=== PATIENT | male | born 1940 | race African-American/Black ===

== ENCOUNTER 2018-08-10 10:03 | Emergency (ER) | payer MEDICARE, MEDICAID ==
[~2018-08-10] VITALS: Ht 172.7 cm; Wt 60.0 kg
[~2018-08-10 10:03] MED LIST: ASPI-1159 PO; DOCU-138 PO; FAMO-134 PO; LOSA100T14 PO; XALAO EACHEYE
[2018-08-10 16:51] VITALS: BP 136/80
== END 2018-08-10 17:29 | disposition home or self-care (01) ==
LOC: ER 10:03
DX: S80.02XA Contusion of left knee, initial encounter (principal); S09.8XXA Other specified injuries of head, initial encounter; J44.9 Chronic obstructive pulmonary disease, unspecified; F32.9 Major depressive disorder, single episode, unspecified; E11.9 Type 2 diabetes mellitus without complications; K21.9 Gastro-esophageal reflux disease without esophagitis; I10 Essential (primary) hypertension; H40.9 Unspecified glaucoma; W18.39XA Other fall on same level, initial encounter; Y93.89 Activity, other specified; Y92.89 Other specified places as the place of occurrence of the external cause; Y99.8 Other external cause status; Z88.8 Allergy status to other drugs, medicaments and biological substances; Z79.82 Long term (current) use of aspirin; Z79.899 Other long term (current) drug therapy
CPT/HCPCS: 70450; 73560; 99284; A4217; Z7610

== ENCOUNTER 2019-02-16 10:20 | Inpatient (IN) | payer MEDICARE, MEDICAID ==
[~2019-02-16] VITALS: Ht 167.6 cm; Wt 38.1 kg
[~2019-02-16 10:20] MED LIST changes: -ASPI-1159 PO; +ASPI-1393 PO; -LOSA100T14 PO; +LOSA100T32 PO
[2019-02-16 11:15] LABS: BASOPHILS % 0.8 % (0.0-2.0); EOSINOPHILS % 0.2 % (0.0-5.0); HEMATOCRIT. 36.2 % (42.0-52.0); HEMOGLOBIN. 11.7 g/dL (14.0-18.0); LYMPHOCYTES % 15.8 % (20.0-50.0); MEAN CORPUSCULAR HEMOGLOBIN 29.9 pg (28.0-32.0); MEAN CORPUSCULAR VOLUME 92.5 fL (80.0-94.0); MEAN PLATELET VOLUME 7.4 fl (7.4-10.4); MONOCYTES % 13.5 % (2.0-8.0); NEUTROPHILS % 69.7 % (40.0-76.0); PLATELET 235 x1000/uL (130-400); RED BLOOD CELL COUNT 3.91 mill/uL (4.7-6.1); RED CELL DISTRIBUTION WIDTH 15.5 % (11.6-14.6)
[2019-02-16 11:20] LABS: CHLORIDE 113 mEq/L (98-107)
[2019-02-16 11:23] LABS: INR 1.2; PROTHROMBIN TIME 12.3 sec (9.6-11.0)
[2019-02-16] MEDS ORDERED: ACETAMINOPHEN 325MG TABLET PO PRN (12:15)
[2019-02-16] MEDS ORDERED: DOCUSATE SODIUM 100MG CAPSULE PO PRN (12:15)
[2019-02-16] MEDS ORDERED: ONDANSETRON HCL 4MG/2ML INJ IV PRN (12:15)
[2019-02-16] MEDS ORDERED: CLONIDINE 0.1MG TABLET PO PRN (12:15)
[2019-02-16] MEDS: DEXT 5%/0.45% NACL 1000ML 1,000 ML IV SCH (13:42)
[2019-02-16 15:00] VITALS: BP 113/74
[2019-02-16 16:00] VITALS: BP 113/74
[2019-02-16] MEDS ORDERED: MULT-230 MT (16:55)
[2019-02-16] MEDS ORDERED: MEGE40TA27 PO (16:55)
[2019-02-16] MEDS ORDERED: METF-815 PO (16:55)
[2019-02-16] MEDS ORDERED: AMIN30LI2 PO (16:55)
[2019-02-16] MEDS ORDERED: FOLI-43 MT (16:55)
[2019-02-16] MEDS ORDERED: BRIM5DRO EACHEYE (16:55)
[2019-02-16] MEDS ORDERED: BISACODYL 10MG SUPP PR SCH (17:15)
[2019-02-16] MEDS ORDERED: DEXTROSE 50% WATER 50ML SYRINGE IV PRN (18:30)
[2019-02-16 20:00] VITALS: BP 126/69
[2019-02-16] MEDS: INSULIN LISPRO 100 UNITS/ML SUBCUT SCH (21:00)
[2019-02-16] MEDS: BLOOD SUGAR DIAGNOSTIC STRIP TEST SCH (21:46)
[2019-02-16] MEDS: PANTOPRAZOLE SODIUM 40 MG/VIAL IV SCH (21:46)
[2019-02-16] MEDS: LATANOPROST 0.005% OPHTH DROPS 2.5ML BOTHEYE SCH (21:48)
[2019-02-17] VITALS: BP 111/60
[2019-02-17] MEDS: DEXT 5%/0.45% NACL 1000ML 1,000 ML IV SCH ×2 (03:18→14:54)
[2019-02-17 04:00] VITALS: BP 159/87
[2019-02-17] MEDS: BLOOD SUGAR DIAGNOSTIC STRIP TEST SCH ×4 (06:35→21:31)
[2019-02-17 07:32] LABS: INR 1.3; PARTIAL THROMBOPLASTIN TIME 26.5 sec (23.4-31.0); PROTHROMBIN TIME 12.7 sec (9.6-11.0)
[2019-02-17 07:33] LABS: BASOPHILS % 0.2 % (0.0-2.0); EOSINOPHILS % 0.3 % (0.0-5.0); HEMATOCRIT. 28.9 % (42.0-52.0); HEMOGLOBIN. 9.4 g/dL (14.0-18.0); LYMPHOCYTES % 25.7 % (20.0-50.0); MEAN CORPUSCULAR HEMOGLOBIN 29.9 pg (28.0-32.0); MEAN CORPUSCULAR VOLUME 91.6 fL (80.0-94.0); MEAN PLATELET VOLUME 7.8 fl (7.4-10.4); MONOCYTES % 9.1 % (2.0-8.0); NEUTROPHILS % 64.7 % (40.0-76.0); PLATELET 194 x1000/uL (130-400); RED BLOOD CELL COUNT 3.15 mill/uL (4.7-6.1); RED CELL DISTRIBUTION WIDTH 15.6 % (11.6-14.6)
[2019-02-17 07:47] LABS: CHLORIDE 119 mEq/L (98-107)
[2019-02-17] MEDS: INSULIN LISPRO 100 UNITS/ML SUBCUT SCH ×4 (07:50→21:00)
[2019-02-17 07:59] LABS: LDL CHOLESTEROL 49 mg/dL (5-100)
[2019-02-17 08:00] VITALS: BP 138/78
[2019-02-17 08:00] LABS: HDL CHOLESTEROL 30 mg/dL (40-59)
[2019-02-17] MEDS ORDERED: PANTOPRAZOLE SODIUM 40 MG/VIAL IV SCH (09:00)
[2019-02-17] MEDS: PANTOPRAZOLE SODIUM 40 MG/VIAL IV SCH (09:54)
[2019-02-17] MEDS: LOSARTAN POTASSIUM 50 MG TABLET PO SCH (09:54)
[2019-02-17 12:08] LABS: HEMATOCRIT 30.6 % (42.0-52.0)
[2019-02-17 12:37] VITALS: BP 137/68
[2019-02-17] MEDS ORDERED: SIMETHICONE 40 MG/0.6 ML 30ML ONE (13:13)
[2019-02-17] MEDS ORDERED: MIDAZOLAM HCL 5 MG/5 ML VIAL ONE (13:13)
[2019-02-17] MEDS ORDERED: FENTANYL CITRATE/PF 50MCG/ML 2ML VIAL ONE (13:14)
[2019-02-17] MEDS ORDERED: CEFAZOLIN 1000MG PREMIX 50 ML IV ONE ×2 (13:31→13:32)
[2019-02-17] MEDS ORDERED: MIDAZOLAM HCL 5 MG/5 ML VIAL IV PRN (13:35)
[2019-02-17] MEDS ORDERED: FENTANYL CITRATE/PF 50MCG/ML 2ML VIAL IV PRN (13:36)
[2019-02-17 16:42] VITALS: BP 147/81
[2019-02-17 20:00] VITALS: BP 120/69
[2019-02-17] MEDS: LATANOPROST 0.005% OPHTH DROPS 2.5ML BOTHEYE SCH (22:00)
[2019-02-18] VITALS: BP 103/55
[2019-02-18 04:00] VITALS: BP 129/68
[2019-02-18] MEDS: DEXT 5%/0.45% NACL 1000ML 1,000 ML IV SCH (04:42)
[2019-02-18 06:37] LABS: BASOPHILS % 0.2 % (0.0-2.0); HEMATOCRIT. 34.4 % (42.0-52.0); LYMPHOCYTES % 8.3 % (20.0-50.0); MEAN CORPUSCULAR HEMOGLOBIN 29.8 pg (28.0-32.0); MEAN CORPUSCULAR VOLUME 93.2 fL (80.0-94.0); MEAN PLATELET VOLUME 8.3 fl (7.4-10.4); MONOCYTES % 4.8 % (2.0-8.0); NEUTROPHILS % 86.7 % (40.0-76.0); PLATELET 185 x1000/uL (130-400); RED BLOOD CELL COUNT 3.69 mill/uL (4.7-6.1); RED CELL DISTRIBUTION WIDTH 15.7 % (11.6-14.6)
[2019-02-18 06:46] LABS: CHLORIDE 122 mEq/L (98-107)
[2019-02-18] MEDS: BLOOD SUGAR DIAGNOSTIC STRIP TEST SCH ×2 (07:20→12:20)
[2019-02-18] MEDS ORDERED: OMEPRAZOLE 20MG CAPSULE EXTENDED RELEASE PO SCH (07:20)
[2019-02-18] MEDS: INSULIN LISPRO 100 UNITS/ML SUBCUT SCH ×2 (07:40→12:50)
[2019-02-18 08:00] VITALS: BP 138/63
[2019-02-18] MEDS ORDERED: QUETIAPINE FUMARATE 25MG TABLET PO SCH (09:00)
[2019-02-18] MEDS: LOSARTAN POTASSIUM 50 MG TABLET PO SCH (09:38)
[2019-02-18 10:18] VITALS: BP 138/63
[2019-02-18 12:00] VITALS: BP 116/63
== END 2019-02-18 13:45 | DRG 241 ==
LOC: ER 10:20 → 6WST 11:44 → ENRESERV 12:56 → 6WST 02-18 08:10
PROVIDERS: ADMIT Internal Medicine Nephrology; ATTEND Internal Medicine Nephrology
PROC: 0DH63UZ Insertion of Feeding Device into Stomach, Percutaneous Approach (ICD-10-PCS; principal; 2019-02-17)
DX: K29.70 Gastritis, unspecified, without bleeding (principal); R64 Cachexia; G93.40 Encephalopathy, unspecified; K22.10 Ulcer of esophagus without bleeding; F20.9 Schizophrenia, unspecified; N28.1 Cyst of kidney, acquired; J44.9 Chronic obstructive pulmonary disease, unspecified; E11.9 Type 2 diabetes mellitus without complications; F01.50 Vascular dementia, unspecified severity, without behavioral disturbance, psychotic disturbance, mood disturbance, and anxiety; R62.7 Adult failure to thrive; F32.9 Major depressive disorder, single episode, unspecified; J98.11 Atelectasis; K59.00 Constipation, unspecified; K44.9 Diaphragmatic hernia without obstruction or gangrene; K21.9 Gastro-esophageal reflux disease without esophagitis; I10 Essential (primary) hypertension; Q53.10 Unspecified undescended testicle, unilateral; I69.311 Memory deficit following cerebral infarction; Z68.1 Body mass index [BMI] 19.9 or less, adult; Z88.8 Allergy status to other drugs, medicaments and biological substances; Z79.899 Other long term (current) drug therapy; Z79.82 Long term (current) use of aspirin
CPT/HCPCS: 36415; 71045; 74176; 80048; 80061; 82962; 84484; 85014; 85018; 86850; 86900; 93005; 93970; 99285; C9113; J0690; J2250; J3010

== ENCOUNTER 2019-02-27 00:05 | Inpatient (IN) | payer MEDICARE, MEDICAID ==
[~2019-02-27] VITALS: Ht 172.7 cm; Wt 47.2 kg
[~2019-02-27 00:05] MED LIST changes: +AMIN30LI2 PO; +BRIM5DRO EACHEYE; -FAMO-134 PO; +FOLI-43 MT; +MEGE40TA27 PO; +METF-815 PO; +MULT-230 MT
[2019-02-27] MEDS ORDERED: ONDANSETRON HCL 4MG/2ML INJ IV STA (00:56)
[2019-02-27] MEDS ORDERED: SODIUM CHLORIDE 0.9% 1,000 ML IV ONE (01:00)
[2019-02-27 01:12] LABS: BASOPHILS % 0.3 % (0.0-2.0); EOSINOPHILS % 0.5 % (0.0-5.0); HEMATOCRIT. 31.1 % (42.0-52.0); HEMOGLOBIN. 10.1 g/dL (14.0-18.0); LYMPHOCYTES % 16.4 % (20.0-50.0); MEAN CORPUSCULAR VOLUME 92.7 fL (80.0-94.0); MEAN PLATELET VOLUME 7.8 fl (7.4-10.4); MONOCYTES % 9.4 % (2.0-8.0); NEUTROPHILS % 73.4 % (40.0-76.0); PLATELET 250 x1000/uL (130-400); RED BLOOD CELL COUNT 3.36 mill/uL (4.7-6.1); RED CELL DISTRIBUTION WIDTH 16.6 % (11.6-14.6)
[2019-02-27 01:18] LABS: INR 1.2
[2019-02-27 01:19] LABS: CHLORIDE 117 mEq/L (98-107)
[2019-02-27] MEDS ORDERED: FAMOTIDINE 20MG/2ML VIAL IV ONE (02:15)
[2019-02-27] MEDS ORDERED: CLONIDINE 0.1MG TABLET PO PRN (02:30)
[2019-02-27] MEDS ORDERED: DOCUSATE SODIUM 100MG CAPSULE PO PRN (02:30)
[2019-02-27] MEDS ORDERED: HYDROMORPHONE HCL/PF 2MG/ML CPJ IV PRN (02:30)
[2019-02-27] MEDS ORDERED: ONDANSETRON HCL 4MG/2ML INJ IV PRN (02:30)
[2019-02-27] MEDS ORDERED: ACETAMINOPHEN 650MG/20.3ML UDC GT PRN (02:30)
[2019-02-27 02:56] LABS: TOTAL IRON BINDING CAPACITY 265 ug/dL (250-450)
[2019-02-27 04:15] VITALS: BP 119/62
[2019-02-27 04:30] VITALS: BP 119/62
[2019-02-27] MEDS ORDERED: LOSA50TA3 GT (05:40)
[2019-02-27] MEDS ORDERED: FERR220S6 MT (05:40)
[2019-02-27] MEDS: DEXT 5%/0.45% NACL 1000ML 1,000 ML IV SCH ×2 (06:08→20:55)
[2019-02-27] MEDS ORDERED: DEXTROSE 50% WATER 50ML SYRINGE IV PRN (07:15)
[2019-02-27] MEDS: INSULIN LISPRO 100 UNITS/ML SUBCUT SCH ×4 (07:40→21:00)
[2019-02-27] MEDS: BLOOD SUGAR DIAGNOSTIC STRIP TEST SCH ×4 (07:46→20:47)
[2019-02-27 08:00] VITALS: BP 124/69
[2019-02-27 12:00] VITALS: BP 101/63
[2019-02-27 16:00] VITALS: BP 129/71
[2019-02-27] MEDS: SUCRALFATE 1 G/10 ML UDC GT SCH ×2 (16:58→20:47)
[2019-02-27 20:00] VITALS: BP 136/80
[2019-02-27] MEDS: PANTOPRAZOLE SODIUM 40 MG/VIAL IV SCH (20:47)
[2019-02-28] VITALS: BP 127/66
[2019-02-28 04:00] VITALS: BP 130/73
[2019-02-28] MEDS: BLOOD SUGAR DIAGNOSTIC STRIP TEST SCH ×4 (05:59→21:51)
[2019-02-28] MEDS: INSULIN LISPRO 100 UNITS/ML SUBCUT SCH ×4 (05:59→21:00)
[2019-02-28] MEDS: SUCRALFATE 1 G/10 ML UDC GT SCH ×4 (05:59→21:50)
[2019-02-28 09:15] LABS: BASOPHILS % 0.5 % (0.0-2.0); EOSINOPHILS % 1.4 % (0.0-5.0); HEMATOCRIT. 30.9 % (42.0-52.0); HEMOGLOBIN. 9.7 g/dL (14.0-18.0); LYMPHOCYTES % 23.3 % (20.0-50.0); MEAN CORPUSCULAR HEMOGLOBIN 29.9 pg (28.0-32.0); MEAN PLATELET VOLUME 7.9 fl (7.4-10.4); MONOCYTES % 8.7 % (2.0-8.0); NEUTROPHILS % 66.1 % (40.0-76.0); PLATELET 249 x1000/uL (130-400); RED BLOOD CELL COUNT 3.26 mill/uL (4.7-6.1); RED CELL DISTRIBUTION WIDTH 16.3 % (11.6-14.6)
[2019-02-28] MEDS: PANTOPRAZOLE SODIUM 40 MG/VIAL IV SCH ×2 (09:26→21:51)
[2019-02-28 09:59] LABS: CHLORIDE 134 mEq/L (98-107)
[2019-02-28 10:09] LABS: LDL CHOLESTEROL 79 mg/dL (5-100)
[2019-02-28 10:11] LABS: HDL CHOLESTEROL 28 mg/dL (40-59)
[2019-02-28] MEDS: DEXTROSE 5% WATER 1,000 ML IV SCH ×2 (11:37→21:50)
[2019-02-28 17:46] VITALS: BP 126/74
[2019-02-28 20:00] VITALS: BP 132/77
[2019-03-01] VITALS: BP 127/77
[2019-03-01 04:00] VITALS: BP 137/77
[2019-03-01] MEDS: BLOOD SUGAR DIAGNOSTIC STRIP TEST SCH ×4 (06:07→20:35)
[2019-03-01] MEDS: SUCRALFATE 1 G/10 ML UDC GT SCH ×4 (06:07→23:58)
[2019-03-01] MEDS: INSULIN LISPRO 100 UNITS/ML SUBCUT SCH ×4 (06:07→20:36)
[2019-03-01] MEDS: DEXTROSE 5% WATER 1,000 ML IV SCH ×3 (06:08→23:59)
[2019-03-01 07:48] LABS: BASOPHILS % 0.6 % (0.0-2.0); EOSINOPHILS % 1.7 % (0.0-5.0); HEMATOCRIT. 28.5 % (42.0-52.0); HEMOGLOBIN. 9.1 g/dL (14.0-18.0); LYMPHOCYTES % 26.5 % (20.0-50.0); MEAN CORPUSCULAR HEMOGLOBIN 29.9 pg (28.0-32.0); MEAN CORPUSCULAR VOLUME 93.8 fL (80.0-94.0); MEAN PLATELET VOLUME 8.7 fl (7.4-10.4); MONOCYTES % 10.5 % (2.0-8.0); NEUTROPHILS % 60.7 % (40.0-76.0); PLATELET 240 x1000/uL (130-400); RED BLOOD CELL COUNT 3.04 mill/uL (4.7-6.1); RED CELL DISTRIBUTION WIDTH 16.2 % (11.6-14.6)
[2019-03-01 08:00] VITALS: BP 132/71
[2019-03-01 08:03] LABS: CHLORIDE 132 mEq/L (98-107)
[2019-03-01] MEDS: PANTOPRAZOLE SODIUM 40 MG/VIAL IV SCH ×2 (09:58→20:35)
[2019-03-01 12:00] VITALS: BP 125/72
[2019-03-01 16:00] VITALS: BP 110/65
[2019-03-01 20:00] VITALS: BP 130/72
[2019-03-02] VITALS: BP 124/64
[2019-03-02 04:00] VITALS: BP 131/70
[2019-03-02] MEDS: SUCRALFATE 1 G/10 ML UDC GT SCH ×2 (05:24→12:26)
[2019-03-02] MEDS: BLOOD SUGAR DIAGNOSTIC STRIP TEST SCH ×2 (05:24→12:15)
[2019-03-02] MEDS: DEXTROSE 5% WATER 1,000 ML IV SCH (05:24)
[2019-03-02] MEDS: INSULIN LISPRO 100 UNITS/ML SUBCUT SCH ×2 (06:53→12:15)
[2019-03-02 06:58] LABS: CHLORIDE 117 mEq/L (98-107)
[2019-03-02 07:08] LABS: BASOPHILS % 0.6 % (0.0-2.0); EOSINOPHILS % 2.2 % (0.0-5.0); HEMATOCRIT. 28.7 % (42.0-52.0); LYMPHOCYTES % 31.4 % (20.0-50.0); MEAN CORPUSCULAR HEMOGLOBIN 29.4 pg (28.0-32.0); MEAN CORPUSCULAR VOLUME 94.2 fL (80.0-94.0); MONOCYTES % 11.1 % (2.0-8.0); NEUTROPHILS % 54.7 % (40.0-76.0); PLATELET 210 x1000/uL (130-400); RED BLOOD CELL COUNT 3.05 mill/uL (4.7-6.1)
[2019-03-02] MEDS ORDERED: POTASSIUM CHLORIDE 20MEQ/PACKET PO SCH (07:30)
[2019-03-02] MEDS: PANTOPRAZOLE SODIUM 40 MG/VIAL IV SCH (09:28)
[2019-03-02 12:00] VITALS: BP 132/73
[2019-03-02 15:44] VITALS: BP 132/73
[2019-03-02 16:00] VITALS: BP 119/90
== END 2019-03-02 17:20 | DRG 241 ==
LOC: ER 00:24 → 8WST 02:20 → ENRESERV 03:25
PROVIDERS: ADMIT Internal Medicine Nephrology; ATTEND Internal Medicine Nephrology
DX: K29.61 Other gastritis with bleeding (principal); E43 Unspecified severe protein-calorie malnutrition; N17.9 Acute kidney failure, unspecified; E87.0 Hyperosmolality and hypernatremia; K86.89 Other specified diseases of pancreas; E87.1 Hypo-osmolality and hyponatremia; Z93.1 Gastrostomy status; E86.0 Dehydration; D64.9 Anemia, unspecified; E11.9 Type 2 diabetes mellitus without complications; F20.9 Schizophrenia, unspecified; I10 Essential (primary) hypertension; K21.9 Gastro-esophageal reflux disease without esophagitis; J44.9 Chronic obstructive pulmonary disease, unspecified; F03.90 Unspecified dementia, unspecified severity, without behavioral disturbance, psychotic disturbance, mood disturbance, and anxiety; J98.11 Atelectasis; K56.41 Fecal impaction; Z88.8 Allergy status to other drugs, medicaments and biological substances; Z79.899 Other long term (current) drug therapy; Z86.73 Personal history of transient ischemic attack (TIA), and cerebral infarction without residual deficits; Z79.82 Long term (current) use of aspirin; Z79.84 Long term (current) use of oral hypoglycemic drugs; Z68.1 Body mass index [BMI] 19.9 or less, adult
CPT/HCPCS: 36415; 71045; 74176; 80048; 80061; 82270; 82962; 83540; 83550; 84295; 84443; 84484; 93005; 93970; 96361; 96374; 96375; 99285; C9113; J2405; J3490; J7030; J7042; J7070

== ENCOUNTER 2019-07-07 15:33 | Inpatient (IN) | payer MEDICARE, MEDICAID ==
[~2019-07-07] VITALS: Ht 167.6 cm; Wt 57.4 kg
[~2019-07-07 15:33] MED LIST changes: -ASPI-1393 PO; +ASPI-1497 PO; +FERR220S6 MT; +LOSA50TA3 GT; -MEGE40TA27 PO; +MEGE40TA5 PO
[2019-07-07 18:05] LABS: CHLORIDE 127 mEq/L (98-107)
[2019-07-07 18:08] LABS: BASOPHILS % 0.2 % (0.0-2.0); EOSINOPHILS % 1.6 % (0.0-5.0); HEMOGLOBIN. 10.5 g/dL (14.0-18.0); MEAN CORPUSCULAR HEMOGLOBIN 28.4 pg (28.0-32.0); MEAN CORPUSCULAR VOLUME 92.2 fL (80.0-94.0); MONOCYTES % 10.6 % (2.0-8.0); NEUTROPHILS % 67.6 % (40.0-76.0); PLATELET 135 x1000/uL (130-400); RED BLOOD CELL COUNT 3.69 mill/uL (4.7-6.1); RED CELL DISTRIBUTION WIDTH 16.5 % (11.6-14.6)
[2019-07-07] MEDS ORDERED: SODIUM CHLORIDE 0.9% 250 ML IV ONE (19:12)
[2019-07-07] MEDS ORDERED: ASPIRIN 300MG SUPP PR ONE (19:15)
[2019-07-07] MEDS ORDERED: CLONIDINE 0.1MG TABLET PO PRN (22:00)
[2019-07-07] MEDS ORDERED: GUAIFENESIN 200MG/10ML SUGAR FREE UDC PO PRN (22:00)
[2019-07-07] MEDS ORDERED: ONDANSETRON HCL 4MG/2ML INJ IV PRN (22:00)
[2019-07-07] MEDS ORDERED: ACETAMINOPHEN 650MG/20.3ML UDC GT PRN (22:00)
[2019-07-07 23:24] LABS: CREATINE KINASE MB FRACTION 1.4 ng/mL (0.5-3.6)
[2019-07-08 00:59] VITALS: BP 122/75
[2019-07-08] MEDS: DEXTROSE 5% WATER 1,000 ML IV SCH ×4 (01:30→21:05)
[2019-07-08 04:00] VITALS: BP 106/51
[2019-07-08 06:48] LABS: BASOPHILS % 0.4 % (0.0-2.0); EOSINOPHILS % 2.1 % (0.0-5.0); HEMATOCRIT. 35.4 % (42.0-52.0); LYMPHOCYTES % 25.2 % (20.0-50.0); MEAN CORPUSCULAR HEMOGLOBIN 29.1 pg (28.0-32.0); MEAN CORPUSCULAR VOLUME 93.2 fL (80.0-94.0); MEAN PLATELET VOLUME 11.6 fl (7.4-10.4); MONOCYTES % 11.3 % (2.0-8.0); PLATELET 131 x1000/uL (130-400); RED CELL DISTRIBUTION WIDTH 16.7 % (11.6-14.6)
[2019-07-08 06:53] LABS: CHLORIDE 128 mEq/L (98-107)
[2019-07-08 07:02] LABS: CREATINE KINASE 103 IU/L (39-308)
[2019-07-08 07:04] LABS: CREATINE KINASE MB FRACTION 1.2 ng/mL (0.5-3.6)
[2019-07-08 08:00] VITALS: BP 123/53
[2019-07-08] MEDS: ENOXAPARIN 40MG/0.4ML SYR SUBCUT SCH (10:02)
[2019-07-08] MEDS ORDERED: DEXTROSE 50% WATER 50ML SYRINGE IV PRN (11:00)
[2019-07-08 12:00] VITALS: BP 137/76
[2019-07-08] MEDS: BLOOD SUGAR DIAGNOSTIC STRIP TEST SCH ×3 (12:20→20:50)
[2019-07-08] MEDS: INSULIN LISPRO 100 UNITS/ML SUBCUT SCH ×3 (12:50→21:00)
[2019-07-08] MEDS: BRIMONIDINE 0.2% OPHTH DROPS 5ML EACHEYE SCH ×2 (14:14→20:51)
[2019-07-08 16:00] VITALS: BP 133/60
[2019-07-08] MEDS: METFORMIN HCL 500MG TABLET PO SCH (17:50)
[2019-07-08 20:00] VITALS: BP 114/63
[2019-07-08] MEDS: METOPROLOL TARTRATE 25MG TABLET PO SCH (20:50)
[2019-07-08] MEDS: LATANOPROST 0.005% OPHTH DROPS 2.5ML EACHEYE SCH (20:51)
[2019-07-09 00:18] VITALS: BP 115/70
[2019-07-09 04:00] VITALS: BP 130/88
[2019-07-09] MEDS: BRIMONIDINE 0.2% OPHTH DROPS 5ML EACHEYE SCH ×3 (05:50→21:07)
[2019-07-09] MEDS: BLOOD SUGAR DIAGNOSTIC STRIP TEST SCH ×4 (05:50→21:06)
[2019-07-09] MEDS: DEXTROSE 5% WATER 1,000 ML IV SCH ×3 (05:52→21:16)
[2019-07-09 06:14] LABS: BASOPHILS % 0.6 % (0.0-2.0); EOSINOPHILS % 2.5 % (0.0-5.0); HEMATOCRIT. 34.9 % (42.0-52.0); HEMOGLOBIN. 10.7 g/dL (14.0-18.0); LYMPHOCYTES % 25.4 % (20.0-50.0); MEAN CORPUSCULAR HEMOGLOBIN 28.7 pg (28.0-32.0); MEAN CORPUSCULAR VOLUME 93.8 fL (80.0-94.0); MEAN PLATELET VOLUME 11.4 fl (7.4-10.4); NEUTROPHILS % 58.5 % (40.0-76.0); PLATELET 124 x1000/uL (130-400); RED BLOOD CELL COUNT 3.72 mill/uL (4.7-6.1); RED CELL DISTRIBUTION WIDTH 16.9 % (11.6-14.6)
[2019-07-09 06:35] LABS: CHLORIDE 125 mEq/L (98-107)
[2019-07-09 06:41] LABS: PHOSPHORUS 2.7 mg/dL (2.5-4.9)
[2019-07-09] MEDS: INSULIN LISPRO 100 UNITS/ML SUBCUT SCH ×4 (07:35→21:00)
[2019-07-09 08:09] VITALS: BP 116/47
[2019-07-09] MEDS: METFORMIN HCL 500MG TABLET PO SCH ×2 (09:58→17:50)
[2019-07-09] MEDS: LOSARTAN POTASSIUM 50 MG TABLET PO SCH (09:58)
[2019-07-09] MEDS: METOPROLOL TARTRATE 25MG TABLET PO SCH ×2 (09:59→21:07)
[2019-07-09] MEDS: FOLIC ACID 1MG TABLET PO SCH (09:59)
[2019-07-09] MEDS: ENOXAPARIN 40MG/0.4ML SYR SUBCUT SCH (09:59)
[2019-07-09 12:19] VITALS: BP 123/54
[2019-07-09 16:42] VITALS: BP 102/50
[2019-07-09 18:53] LABS: CLARITY URINE CLOUDY (CLEAR); COLOR URINE YELLOW (YELLOW); KETONES URINE NEGATIVE (NEGATIVE); LEUKOCYTE ESTERASE URINE 3+ (NEGATIVE); NITRITE URINE POSITIVE (NEGATIVE); OCCULT BLOOD URINE 1+ (NEGATIVE); PH URINE 6.5 (4.5-8.0); PROTEIN URINE 1+ (NEGATIVE); SPECIFIC GRAVITY URINE 1.014 (1.005-1.030); UROBILINOGEN URINE 0.2 E.U./dL (0.2-1.0)
[2019-07-09 20:00] VITALS: BP 118/61
[2019-07-09] MEDS: LATANOPROST 0.005% OPHTH DROPS 2.5ML EACHEYE SCH (21:08)
[2019-07-10] VITALS: BP 112/50
[2019-07-10 04:00] VITALS: BP 146/72
[2019-07-10] MEDS: DEXTROSE 5% WATER 1,000 ML IV SCH ×3 (05:28→22:00)
[2019-07-10] MEDS: BRIMONIDINE 0.2% OPHTH DROPS 5ML EACHEYE SCH ×3 (05:30→22:35)
[2019-07-10] MEDS: BLOOD SUGAR DIAGNOSTIC STRIP TEST SCH ×4 (06:23→20:18)
[2019-07-10] MEDS: INSULIN LISPRO 100 UNITS/ML SUBCUT SCH ×4 (06:23→20:18)
[2019-07-10] MEDS: METFORMIN HCL 500MG TABLET PO SCH ×2 (07:50→18:36)
[2019-07-10 08:00] VITALS: BP 107/51
[2019-07-10] MEDS: METOPROLOL TARTRATE 25MG TABLET PO SCH ×2 (09:00→20:19)
[2019-07-10] MEDS: ENOXAPARIN 40MG/0.4ML SYR SUBCUT SCH (09:00)
[2019-07-10] MEDS: FOLIC ACID 1MG TABLET PO SCH (09:00)
[2019-07-10] MEDS: LOSARTAN POTASSIUM 50 MG TABLET PO SCH (09:00)
[2019-07-10] MEDS: PANTOPRAZOLE SODIUM 40 MG/VIAL IV SCH (11:18)
[2019-07-10 11:34] LABS: BASOPHILS % 0.3 % (0.0-2.0); EOSINOPHILS % 0.2 % (0.0-5.0); HEMATOCRIT. 32.1 % (42.0-52.0); HEMOGLOBIN. 10.2 g/dL (14.0-18.0); LYMPHOCYTES % 10.1 % (20.0-50.0); MEAN CORPUSCULAR HEMOGLOBIN 28.6 pg (28.0-32.0); MEAN CORPUSCULAR VOLUME 90.4 fL (80.0-94.0); MEAN PLATELET VOLUME 10.8 fl (7.4-10.4); MONOCYTES % 9.3 % (2.0-8.0); NEUTROPHILS % 80.1 % (40.0-76.0); PLATELET 138 x1000/uL (130-400); RED BLOOD CELL COUNT 3.56 mill/uL (4.7-6.1); RED CELL DISTRIBUTION WIDTH 16.2 % (11.6-14.6)
[2019-07-10 11:41] LABS: CHLORIDE 117 mEq/L (98-107)
[2019-07-10 12:00] VITALS: BP 114/50
[2019-07-10 12:32] LABS: BG BASE EXCESS -0.4 mmol/L (-2.0-2.0); BG CARBOXYHEMOGLOBIN 0.3 % (0.5-1.5); BG DEOXYHEMOGLOBIN 10.7 % (0.0-5.0); BG FRACTION INSPIRED OXYGEN 21; BG HCO3 ACT 23.4 mmol/L (22.0-26.0); BG METHEMOGLOBIN 0.1 % (0.0-1.5); BG OXYGEN SATURATION 89.3 % (92.0-98.5); BG OXYHEMOGLOBIN 88.9 % (94.0-97.0); BG PCO2 35.2 mmHg (35.0-45.0); BG SAMPLE SITE RIGHT RADIAL; BG TOTAL HEMOGLOBIN 10.9 g/dL (12.0-18.0); BG VENT MODE ROOM AIR
[2019-07-10] MEDS: METRONIDAZOLE 500 MG PREMIX 100 ML IV SCH ×2 (13:48→22:35)
[2019-07-10] MEDS ORDERED: POTASSIUM CHLORIDE INJ 40 MEQ in DEXT 5% WATER 250 ML IV NR (14:00)
[2019-07-10 16:00] VITALS: BP 98/49
[2019-07-10 16:18] LABS: PHOSPHORUS 2.7 mg/dL (2.5-4.9)
[2019-07-10 22:00] VITALS: BP 105/51
[2019-07-10] MEDS: LATANOPROST 0.005% OPHTH DROPS 2.5ML EACHEYE SCH (22:35)
[2019-07-11] VITALS: BP 95/48
[2019-07-11 04:00] VITALS: BP 103/48
[2019-07-11] MEDS: DEXTROSE 5% WATER 1,000 ML IV SCH ×3 (04:42→21:50)
[2019-07-11] MEDS: METRONIDAZOLE 500 MG PREMIX 100 ML IV SCH ×3 (05:37→21:50)
[2019-07-11] MEDS: BRIMONIDINE 0.2% OPHTH DROPS 5ML EACHEYE SCH ×3 (05:37→21:48)
[2019-07-11 05:47] LABS: BASOPHILS % 0.1 % (0.0-2.0); HEMATOCRIT. 30.9 % (42.0-52.0); HEMOGLOBIN. 9.7 g/dL (14.0-18.0); LYMPHOCYTES % 19.1 % (20.0-50.0); MEAN CORPUSCULAR HEMOGLOBIN 28.8 pg (28.0-32.0); MEAN CORPUSCULAR VOLUME 92.1 fL (80.0-94.0); MEAN PLATELET VOLUME 10.9 fl (7.4-10.4); MONOCYTES % 11.2 % (2.0-8.0); NEUTROPHILS % 68.6 % (40.0-76.0); PLATELET 122 x1000/uL (130-400); RED BLOOD CELL COUNT 3.36 mill/uL (4.7-6.1); RED CELL DISTRIBUTION WIDTH 16.4 % (11.6-14.6)
[2019-07-11] MEDS: BLOOD SUGAR DIAGNOSTIC STRIP TEST SCH ×4 (06:37→21:50)
[2019-07-11] MEDS: INSULIN LISPRO 100 UNITS/ML SUBCUT SCH ×4 (06:37→21:00)
[2019-07-11 06:40] LABS: CHLORIDE 118 mEq/L (98-107)
[2019-07-11 08:00] VITALS: BP 97/56
[2019-07-11] MEDS: FOLIC ACID 1MG TABLET PO SCH (08:25)
[2019-07-11] MEDS: METOPROLOL TARTRATE 25MG TABLET PO SCH ×2 (08:25→21:00)
[2019-07-11] MEDS: LOSARTAN POTASSIUM 50 MG TABLET PO SCH (08:26)
[2019-07-11] MEDS: METFORMIN HCL 500MG TABLET PO SCH ×2 (08:26→16:56)
[2019-07-11] MEDS: PANTOPRAZOLE SODIUM 40 MG/VIAL IV SCH (08:26)
[2019-07-11] MEDS: ENOXAPARIN 40MG/0.4ML SYR SUBCUT SCH (08:26)
[2019-07-11] MEDS ORDERED: MAGNESIUM HYDROXIDE 400MG/5ML 30ML UDC PO PRN (09:45)
[2019-07-11] MEDS ORDERED: POTASSIUM CHLORIDE 20MEQ/PACKET PO SCH (10:45)
[2019-07-11 12:00] VITALS: BP 91/53
[2019-07-11 16:00] VITALS: BP 97/51
[2019-07-11] MEDS: DOCUSATE SODIUM SUGAR FREE 100MG/10ML UDC NG SCH (16:54)
[2019-07-11 20:00] VITALS: BP 101/50
[2019-07-11] MEDS: LATANOPROST 0.005% OPHTH DROPS 2.5ML EACHEYE SCH (21:50)
[2019-07-12] VITALS: BP 100/60
[2019-07-12 04:00] VITALS: BP 111/50
[2019-07-12] MEDS: DEXTROSE 5% WATER 1,000 ML IV SCH ×2 (05:15→14:00)
[2019-07-12] MEDS: BRIMONIDINE 0.2% OPHTH DROPS 5ML EACHEYE SCH ×3 (05:15→21:39)
[2019-07-12] MEDS: METRONIDAZOLE 500 MG PREMIX 100 ML IV SCH (05:16)
[2019-07-12 06:45] LABS: BASOPHILS % 0.3 % (0.0-2.0); CHLORIDE 120 mEq/L (98-107); HEMATOCRIT. 26.6 % (42.0-52.0); HEMOGLOBIN. 8.5 g/dL (14.0-18.0); LYMPHOCYTES % 16.1 % (20.0-50.0); MEAN CORPUSCULAR HEMOGLOBIN 29.2 pg (28.0-32.0); MEAN CORPUSCULAR VOLUME 91.3 fL (80.0-94.0); MEAN PLATELET VOLUME 10.8 fl (7.4-10.4); MONOCYTES % 11.9 % (2.0-8.0); NEUTROPHILS % 70.7 % (40.0-76.0); PLATELET 111 x1000/uL (130-400); RED BLOOD CELL COUNT 2.91 mill/uL (4.7-6.1); RED CELL DISTRIBUTION WIDTH 16.7 % (11.6-14.6)
[2019-07-12] MEDS: INSULIN LISPRO 100 UNITS/ML SUBCUT SCH ×4 (07:50→21:00)
[2019-07-12] MEDS: BLOOD SUGAR DIAGNOSTIC STRIP TEST SCH ×4 (07:53→21:32)
[2019-07-12] MEDS: METFORMIN HCL 500MG TABLET PO SCH ×2 (09:30→17:49)
[2019-07-12] MEDS: FOLIC ACID 1MG TABLET PO SCH (09:30)
[2019-07-12] MEDS: DOCUSATE SODIUM SUGAR FREE 100MG/10ML UDC NG SCH ×2 (09:31→17:00)
[2019-07-12] MEDS: LOSARTAN POTASSIUM 50 MG TABLET PO SCH (09:31)
[2019-07-12] MEDS: METOPROLOL TARTRATE 25MG TABLET PO SCH (09:31)
[2019-07-12] MEDS: PANTOPRAZOLE SODIUM 40 MG/VIAL IV SCH (09:31)
[2019-07-12] MEDS: ENOXAPARIN 40MG/0.4ML SYR SUBCUT SCH (09:31)
[2019-07-12 12:00] VITALS: BP 112/51
[2019-07-12] MEDS: NITROFURANTOIN 100MG M/M CAPSULE PO SCH ×2 (13:00→21:39)
[2019-07-12 14:25] VITALS: BP 112/51
[2019-07-12 20:00] VITALS: BP 101/66
[2019-07-12] MEDS: LATANOPROST 0.005% OPHTH DROPS 2.5ML EACHEYE SCH (21:39)
[2019-07-13] VITALS (30 sets, daily range): BP systolic 71–118; BP diastolic 31–74
[2019-07-13] MEDS: DEXTROSE 5% WATER 1,000 ML IV SCH ×2 (02:11→11:21)
[2019-07-13] MEDS: BRIMONIDINE 0.2% OPHTH DROPS 5ML EACHEYE SCH ×3 (05:38→23:50)
[2019-07-13] MEDS: BLOOD SUGAR DIAGNOSTIC STRIP TEST SCH ×4 (06:57→21:58)
[2019-07-13] MEDS: INSULIN LISPRO 100 UNITS/ML SUBCUT SCH ×4 (06:57→21:00)
[2019-07-13] MEDS ORDERED: DILTIAZEM HCL 5MG/ML 5ML VIAL IV SCH (07:00)
[2019-07-13] MEDS: DOCUSATE SODIUM SUGAR FREE 100MG/10ML UDC NG SCH ×2 (08:34→17:00)
[2019-07-13] MEDS: PANTOPRAZOLE SODIUM 40 MG/VIAL IV SCH (08:34)
[2019-07-13] MEDS: METFORMIN HCL 500MG TABLET PO SCH ×2 (08:35→17:08)
[2019-07-13] MEDS: NITROFURANTOIN 100MG M/M CAPSULE PO SCH ×3 (08:35→22:23)
[2019-07-13] MEDS: FOLIC ACID 1MG TABLET PO SCH (08:35)
[2019-07-13] MEDS ORDERED: METOPROLOL TARTRATE 25MG TABLET PO SCH (09:00)
[2019-07-13] MEDS ORDERED: SODIUM CHLORIDE 0.9% 250 ML IV ONE (09:45)
[2019-07-13 09:54] LABS: BG BASE EXCESS 0.2 mmol/L (-2.0-2.0); BG DEOXYHEMOGLOBIN 4.6 % (0.0-5.0); BG FRACTION INSPIRED OXYGEN 28; BG METHEMOGLOBIN 0.3 % (0.0-1.5); BG OXYGEN SATURATION 95.4 % (92.0-98.5); BG OXYHEMOGLOBIN 95.1 % (94.0-97.0); BG PCO2 35.2 mmHg (35.0-45.0); BG PH 7.452 (7.350-7.450); BG PO2 81.8 mmHg (75.0-100.0); BG SAMPLE SITE RIGHT BRACHIAL; BG TOTAL HEMOGLOBIN 8.7 g/dL (12.0-18.0); BG VENT MODE NASAL CANNULA
[2019-07-13 10:06] LABS: BASOPHILS % 0.3 % (0.0-2.0); EOSINOPHILS % 2.3 % (0.0-5.0); HEMATOCRIT. 24.4 % (42.0-52.0); HEMOGLOBIN. 7.7 g/dL (14.0-18.0); LYMPHOCYTES % 20.6 % (20.0-50.0); MEAN CORPUSCULAR HEMOGLOBIN 28.5 pg (28.0-32.0); MEAN CORPUSCULAR VOLUME 90.8 fL (80.0-94.0); MEAN PLATELET VOLUME 10.5 fl (7.4-10.4); MONOCYTES % 13.2 % (2.0-8.0); NEUTROPHILS % 63.6 % (40.0-76.0); PLATELET 127 x1000/uL (130-400); RED BLOOD CELL COUNT 2.69 mill/uL (4.7-6.1); RED CELL DISTRIBUTION WIDTH 16.9 % (11.6-14.6)
[2019-07-13 10:12] LABS: CHLORIDE 117 mEq/L (98-107)
[2019-07-13 10:18] LABS: PHOSPHORUS 2.4 mg/dL (2.5-4.9)
[2019-07-13] MEDS ORDERED: DILTIAZEM HCL 125 MG in DEXT 5% WATER 100 ML IV SCH (10:30)
[2019-07-13] MEDS ORDERED: CEFTRIAXONE 1 G PREMIX 50 ML IV SCH ×2 (10:30→14:00)
[2019-07-13] MEDS ORDERED: METRONIDAZOLE 500 MG PREMIX 100 ML IV SCH (11:00)
[2019-07-13] MEDS ORDERED: BISACODYL 10MG SUPP PR SCH (11:15)
[2019-07-13] MEDS ORDERED: SORBITOL 70% SOLN 30ML PO SCH (11:15)
[2019-07-13] MEDS: METRONIDAZOLE 500 MG PREMIX 100 ML IV SCH (15:27)
[2019-07-13] MEDS ORDERED: POTASSIUM CHLORIDE 20MEQ/PACKET PO NR (16:00)
[2019-07-13 17:47] LABS: TOTAL IRON BINDING CAPACITY 207 ug/dL (250-450)
[2019-07-13] MEDS: LATANOPROST 0.005% OPHTH DROPS 2.5ML EACHEYE SCH (23:03)
[2019-07-14] VITALS (12 sets, daily range): BP systolic 112–130; BP diastolic 51–63
[2019-07-14] LABS: CHLORIDE 118 mEq/L (98-107)
[2019-07-14] MEDS: METRONIDAZOLE 500 MG PREMIX 100 ML IV SCH ×2 (00:01→06:11)
[2019-07-14 05:48] LABS: CHLORIDE 120 mEq/L (98-107)
[2019-07-14] MEDS: BRIMONIDINE 0.2% OPHTH DROPS 5ML EACHEYE SCH ×3 (06:11→22:18)
[2019-07-14] MEDS: BLOOD SUGAR DIAGNOSTIC STRIP TEST SCH ×4 (06:12→20:56)
[2019-07-14 06:23] LABS: BASOPHILS % 0.1 % (0.0-2.0); HEMATOCRIT. 27.6 % (42.0-52.0); HEMOGLOBIN. 8.8 g/dL (14.0-18.0); LYMPHOCYTES % 20.8 % (20.0-50.0); MEAN CORPUSCULAR HEMOGLOBIN 28.8 pg (28.0-32.0); MEAN CORPUSCULAR VOLUME 90.8 fL (80.0-94.0); MEAN PLATELET VOLUME 10.6 fl (7.4-10.4); MONOCYTES % 12.6 % (2.0-8.0); NEUTROPHILS % 63.5 % (40.0-76.0); PLATELET 134 x1000/uL (130-400); RED BLOOD CELL COUNT 3.04 mill/uL (4.7-6.1); RED CELL DISTRIBUTION WIDTH 16.7 % (11.6-14.6)
[2019-07-14] MEDS: INSULIN LISPRO 100 UNITS/ML SUBCUT SCH ×4 (07:20→20:56)
[2019-07-14] MEDS: DOCUSATE SODIUM SUGAR FREE 100MG/10ML UDC NG SCH ×2 (08:19→18:05)
[2019-07-14] MEDS: PANTOPRAZOLE SODIUM 40 MG/VIAL IV SCH (08:19)
[2019-07-14] MEDS: METFORMIN HCL 500MG TABLET PO SCH ×2 (08:19→18:06)
[2019-07-14] MEDS: FOLIC ACID 1MG TABLET PO SCH (08:19)
[2019-07-14] MEDS: CEFAZOLIN 500MG in DEXTROSE 5% WATER 50ML IV SCH ×2 (13:34→23:30)
[2019-07-14] MEDS: ASCORBIC ACID 500 MG TABLET PO SCH (13:35)
[2019-07-14] MEDS: FERROUS SULFATE 300MG/5ML UDC PO SCH ×2 (13:35→18:05)
[2019-07-14] MEDS: ZINC SULFATE 220 MG ( 50 ) CAPSULE PO SCH (13:35)
[2019-07-14] MEDS: SOTALOL HCL 80MG TABLET PO SCH (13:43)
[2019-07-14] MEDS ORDERED: CEFAZOLIN SODIUM 500MG/VIAL IM SCH (14:00)
[2019-07-14] MEDS: LATANOPROST 0.005% OPHTH DROPS 2.5ML EACHEYE SCH (20:56)
[2019-07-14] MEDS ORDERED: LACTULOSE 20G/30ML UDC PO PRN (21:00)
[2019-07-15] VITALS (13 sets, daily range): BP systolic 101–138; BP diastolic 51–82
[2019-07-15] MEDS: BRIMONIDINE 0.2% OPHTH DROPS 5ML EACHEYE SCH ×2 (05:45→13:33)
[2019-07-15] MEDS: CEFAZOLIN 500MG in DEXTROSE 5% WATER 50ML IV SCH (05:45)
[2019-07-15 06:41] LABS: HEMATOCRIT. 30.4 % (42.0-52.0); HEMOGLOBIN. 9.6 g/dL (14.0-18.0); MEAN CORPUSCULAR HEMOGLOBIN 28.8 pg (28.0-32.0); MEAN CORPUSCULAR VOLUME 91.4 fL (80.0-94.0); MEAN PLATELET VOLUME 10.6 fl (7.4-10.4); RED BLOOD CELL COUNT 3.33 mill/uL (4.7-6.1); RED CELL DISTRIBUTION WIDTH 16.8 % (11.6-14.6)
[2019-07-15 06:57] LABS: CHLORIDE 123 mEq/L (98-107)
[2019-07-15 07:04] LABS: PHOSPHORUS 2.3 mg/dL (2.5-4.9)
[2019-07-15] MEDS: INSULIN LISPRO 100 UNITS/ML SUBCUT SCH ×4 (07:20→21:00)
[2019-07-15] MEDS: BLOOD SUGAR DIAGNOSTIC STRIP TEST SCH ×4 (07:36→21:00)
[2019-07-15] MEDS: DOCUSATE SODIUM SUGAR FREE 100MG/10ML UDC NG SCH ×2 (08:29→17:07)
[2019-07-15] MEDS: FERROUS SULFATE 300MG/5ML UDC PO SCH ×3 (08:30→17:06)
[2019-07-15] MEDS: ZINC SULFATE 220 MG ( 50 ) CAPSULE PO SCH (08:31)
[2019-07-15] MEDS: ASCORBIC ACID 500 MG TABLET PO SCH (08:33)
[2019-07-15] MEDS: SOTALOL HCL 80MG TABLET PO SCH ×2 (08:34→11:14)
[2019-07-15] MEDS: FOLIC ACID 1MG TABLET PO SCH (08:34)
[2019-07-15] MEDS: PANTOPRAZOLE SODIUM 40 MG/VIAL IV SCH (08:34)
[2019-07-15] MEDS: METFORMIN HCL 500MG TABLET PO SCH ×2 (08:42→17:07)
[2019-07-15] MEDS: DEXTROSE 5% WATER 1,000 ML IV SCH (09:30)
[2019-07-15 10:10] LABS: PLATELET ESTIMATE NORMAL
[2019-07-15 10:16] LABS: PLATELET 135 x1000/uL (130-400)
[2019-07-15] MEDS: SORBITOL 70% SOLN 30ML PO SCH (15:46)
[2019-07-15] MEDS: CEFAZOLIN 1000MG PREMIX 50 ML IV SCH (17:08)
[2019-07-15] MEDS: LACTULOSE 20G/30ML UDC PO SCH (21:00)
[2019-07-15] MEDS: LATANOPROST 0.005% OPHTH DROPS 2.5ML EACHEYE SCH (23:19)
[2019-07-16] VITALS (13 sets, daily range): BP systolic 92–139; BP diastolic 45–76
[2019-07-16] MEDS: BRIMONIDINE 0.2% OPHTH DROPS 5ML EACHEYE SCH ×4 (00:57→22:54)
[2019-07-16] MEDS: DEXTROSE 5% WATER 1,000 ML IV SCH ×2 (00:58→17:22)
[2019-07-16] MEDS ORDERED: SOTALOL HCL 80MG TABLET PO NR (02:15)
[2019-07-16] MEDS: CEFAZOLIN 1000MG PREMIX 50 ML IV SCH (06:19)
[2019-07-16] MEDS: BLOOD SUGAR DIAGNOSTIC STRIP TEST SCH ×4 (06:26→21:19)
[2019-07-16 06:44] LABS: BASOPHILS % 0.4 % (0.0-2.0); EOSINOPHILS % 1.5 % (0.0-5.0); HEMATOCRIT. 26.4 % (42.0-52.0); HEMOGLOBIN. 8.3 g/dL (14.0-18.0); LYMPHOCYTES % 17.6 % (20.0-50.0); MEAN CORPUSCULAR HEMOGLOBIN 28.6 pg (28.0-32.0); MONOCYTES % 12.5 % (2.0-8.0); PLATELET 146 x1000/uL (130-400); RED CELL DISTRIBUTION WIDTH 16.6 % (11.6-14.6)
[2019-07-16 06:48] LABS: CHLORIDE 119 mEq/L (98-107)
[2019-07-16] MEDS ORDERED: POTASSIUM CHLORIDE 20MEQ/PACKET PO SCH (07:15)
[2019-07-16] MEDS: INSULIN LISPRO 100 UNITS/ML SUBCUT SCH ×4 (07:20→21:00)
[2019-07-16] MEDS: ZINC SULFATE 220 MG ( 50 ) CAPSULE PO SCH (08:25)
[2019-07-16] MEDS: ASCORBIC ACID 500 MG TABLET PO SCH (08:26)
[2019-07-16] MEDS: METFORMIN HCL 500MG TABLET PO SCH ×2 (08:26→17:44)
[2019-07-16] MEDS: SOTALOL HCL 80MG TABLET PO SCH (08:26)
[2019-07-16] MEDS: PANTOPRAZOLE SODIUM 40 MG/VIAL IV SCH (08:26)
[2019-07-16] MEDS: FERROUS SULFATE 300MG/5ML UDC PO SCH ×3 (08:26→17:44)
[2019-07-16] MEDS: FOLIC ACID 1MG TABLET PO SCH (08:27)
[2019-07-16] MEDS: DOCUSATE SODIUM SUGAR FREE 100MG/10ML UDC NG SCH ×2 (08:27→17:00)
[2019-07-16] MEDS: SORBITOL 70% SOLN 30ML PO SCH (08:27)
[2019-07-16] MEDS: LACTULOSE 20G/30ML UDC PO SCH (21:00)
[2019-07-16] MEDS: LATANOPROST 0.005% OPHTH DROPS 2.5ML EACHEYE SCH (21:23)
[2019-07-17] VITALS (11 sets, daily range): BP systolic 105–143; BP diastolic 51–85
[2019-07-17] MEDS: BRIMONIDINE 0.2% OPHTH DROPS 5ML EACHEYE SCH ×3 (05:58→21:43)
[2019-07-17] MEDS: CEFAZOLIN 1000MG PREMIX 50 ML IV SCH ×2 (05:58→18:31)
[2019-07-17] MEDS: BLOOD SUGAR DIAGNOSTIC STRIP TEST SCH ×4 (06:35→21:00)
[2019-07-17 06:44] LABS: BASOPHILS % 0.3 % (0.0-2.0); EOSINOPHILS % 3.3 % (0.0-5.0); HEMATOCRIT. 27.9 % (42.0-52.0); HEMOGLOBIN. 8.7 g/dL (14.0-18.0); LYMPHOCYTES % 22.5 % (20.0-50.0); MEAN CORPUSCULAR HEMOGLOBIN 28.5 pg (28.0-32.0); MEAN CORPUSCULAR VOLUME 90.8 fL (80.0-94.0); MEAN PLATELET VOLUME 9.8 fl (7.4-10.4); MONOCYTES % 12.4 % (2.0-8.0); NEUTROPHILS % 61.5 % (40.0-76.0); PLATELET 157 x1000/uL (130-400); RED BLOOD CELL COUNT 3.08 mill/uL (4.7-6.1); RED CELL DISTRIBUTION WIDTH 16.9 % (11.6-14.6)
[2019-07-17 06:57] LABS: CHLORIDE 116 mEq/L (98-107)
[2019-07-17] MEDS: INSULIN LISPRO 100 UNITS/ML SUBCUT SCH ×4 (07:20→21:00)
[2019-07-17] MEDS: METFORMIN HCL 500MG TABLET PO SCH ×2 (08:01→18:14)
[2019-07-17] MEDS: ZINC SULFATE 220 MG ( 50 ) CAPSULE PO SCH (08:01)
[2019-07-17] MEDS: FOLIC ACID 1MG TABLET PO SCH (08:01)
[2019-07-17] MEDS: SOTALOL HCL 80MG TABLET PO SCH (08:06)
[2019-07-17] MEDS: ASCORBIC ACID 500 MG TABLET PO SCH (08:07)
[2019-07-17] MEDS: PANTOPRAZOLE SODIUM 40 MG/VIAL IV SCH (08:08)
[2019-07-17] MEDS: FERROUS SULFATE 300MG/5ML UDC PO SCH ×3 (08:21→18:14)
[2019-07-17] MEDS: SORBITOL 70% SOLN 30ML PO SCH (08:22)
[2019-07-17] MEDS: DOCUSATE SODIUM SUGAR FREE 100MG/10ML UDC NG SCH ×2 (08:30→17:00)
[2019-07-17] MEDS: DEXTROSE 5% WATER 1,000 ML IV SCH (09:15)
[2019-07-17] MEDS: LATANOPROST 0.005% OPHTH DROPS 2.5ML EACHEYE SCH (21:43)
[2019-07-17] MEDS: LACTULOSE 20G/30ML UDC PO SCH (21:43)
[2019-07-18] VITALS (9 sets, daily range): BP systolic 97–132; BP diastolic 47–80
[2019-07-18] MEDS: DEXTROSE 5% WATER 1,000 ML IV SCH ×2 (03:57→18:04)
[2019-07-18] MEDS: CEFAZOLIN 1000MG PREMIX 50 ML IV SCH ×2 (05:58→18:04)
[2019-07-18] MEDS: BRIMONIDINE 0.2% OPHTH DROPS 5ML EACHEYE SCH ×3 (05:58→22:37)
[2019-07-18] MEDS: BLOOD SUGAR DIAGNOSTIC STRIP TEST SCH ×4 (05:59→21:26)
[2019-07-18] MEDS: INSULIN LISPRO 100 UNITS/ML SUBCUT SCH ×4 (06:23→21:00)
[2019-07-18] MEDS: FOLIC ACID 1MG TABLET PO SCH (08:40)
[2019-07-18] MEDS: SOTALOL HCL 80MG TABLET PO SCH ×2 (08:40→09:56)
[2019-07-18] MEDS: ZINC SULFATE 220 MG ( 50 ) CAPSULE PO SCH (08:40)
[2019-07-18] MEDS: METFORMIN HCL 500MG TABLET PO SCH ×2 (08:40→18:05)
[2019-07-18] MEDS: FERROUS SULFATE 300MG/5ML UDC PO SCH ×3 (08:40→18:05)
[2019-07-18] MEDS: ASCORBIC ACID 500 MG TABLET PO SCH (08:41)
[2019-07-18] MEDS: SORBITOL 70% SOLN 30ML PO SCH (08:41)
[2019-07-18] MEDS: DOCUSATE SODIUM SUGAR FREE 100MG/10ML UDC NG SCH ×2 (08:53→17:00)
[2019-07-18] MEDS: PANTOPRAZOLE SODIUM 40 MG/VIAL IV SCH (09:19)
[2019-07-18] MEDS: LACTULOSE 20G/30ML UDC PO SCH (21:25)
[2019-07-18] MEDS: LATANOPROST 0.005% OPHTH DROPS 2.5ML EACHEYE SCH (21:28)
[2019-07-19] VITALS (10 sets, daily range): BP systolic 109–146; BP diastolic 54–88
[2019-07-19] MEDS: BRIMONIDINE 0.2% OPHTH DROPS 5ML EACHEYE SCH ×2 (05:45→14:07)
[2019-07-19] MEDS: CEFAZOLIN 1000MG PREMIX 50 ML IV SCH (05:45)
[2019-07-19] MEDS: INSULIN LISPRO 100 UNITS/ML SUBCUT SCH ×2 (07:20→12:14)
[2019-07-19] MEDS: BLOOD SUGAR DIAGNOSTIC STRIP TEST SCH ×2 (07:25→12:14)
[2019-07-19] MEDS: SOTALOL HCL 80MG TABLET PO SCH (07:51)
[2019-07-19] MEDS: SORBITOL 70% SOLN 30ML PO SCH (07:52)
[2019-07-19] MEDS: METFORMIN HCL 500MG TABLET PO SCH (07:52)
[2019-07-19] MEDS: ASCORBIC ACID 500 MG TABLET PO SCH (07:52)
[2019-07-19] MEDS: ZINC SULFATE 220 MG ( 50 ) CAPSULE PO SCH (07:52)
[2019-07-19] MEDS: FOLIC ACID 1MG TABLET PO SCH (07:52)
[2019-07-19] MEDS: DOCUSATE SODIUM SUGAR FREE 100MG/10ML UDC NG SCH (07:53)
[2019-07-19] MEDS: FERROUS SULFATE 300MG/5ML UDC PO SCH ×2 (07:53→14:07)
[2019-07-19] MEDS: PANTOPRAZOLE SODIUM 40 MG/VIAL IV SCH (07:53)
[2019-07-19 10:41] LABS: BASOPHILS % 1.1 % (0.0-2.0); EOSINOPHILS % 3.2 % (0.0-5.0); HEMATOCRIT. 28.4 % (42.0-52.0); LYMPHOCYTES % 24.3 % (20.0-50.0); MEAN CORPUSCULAR HEMOGLOBIN 28.5 pg (28.0-32.0); MEAN CORPUSCULAR VOLUME 90.1 fL (80.0-94.0); MEAN PLATELET VOLUME 9.8 fl (7.4-10.4); MONOCYTES % 12.9 % (2.0-8.0); NEUTROPHILS % 58.5 % (40.0-76.0); PLATELET 211 x1000/uL (130-400); RED BLOOD CELL COUNT 3.15 mill/uL (4.7-6.1); RED CELL DISTRIBUTION WIDTH 16.7 % (11.6-14.6)
[2019-07-19 10:51] LABS: CHLORIDE 113 mEq/L (98-107)
[2019-07-31] MEDS ORDERED: FENTANYL CITRATE/PF 500 MCG in SODIUM CHLORIDE 0.9% 40 ML IV PRN (04:45)
== END 2019-07-19 17:31 | DRG 469 ==
LOC: ER 15:33 → 6WST 19:19 → EDBEDREQTM 19:50 → EDBEDREQ 19:50 → ENRESERV 20:55 → 3WST 07-13 09:20
PROVIDERS: ADMIT Internal Medicine Nephrology; ATTEND Internal Medicine Nephrology
PROC: 0DH68UZ Insertion of Feeding Device into Stomach, Via Natural or Artificial Opening Endoscopic (ICD-10-PCS; principal; 2019-07-10)
DX: N17.9 Acute kidney failure, unspecified (principal); E43 Unspecified severe protein-calorie malnutrition; I47.2 Ventricular tachycardia; E87.0 Hyperosmolality and hypernatremia; E87.8 Other disorders of electrolyte and fluid balance, not elsewhere classified; K29.71 Gastritis, unspecified, with bleeding; E86.0 Dehydration; I48.92 Unspecified atrial flutter; R13.10 Dysphagia, unspecified; F20.9 Schizophrenia, unspecified; I49.5 Sick sinus syndrome; E86.1 Hypovolemia; I47.1 Supraventricular tachycardia; F03.90 Unspecified dementia, unspecified severity, without behavioral disturbance, psychotic disturbance, mood disturbance, and anxiety; D64.9 Anemia, unspecified; E11.9 Type 2 diabetes mellitus without complications; I10 Essential (primary) hypertension; J44.9 Chronic obstructive pulmonary disease, unspecified; K21.0 Gastro-esophageal reflux disease with esophagitis; K44.9 Diaphragmatic hernia without obstruction or gangrene; N39.0 Urinary tract infection, site not specified; E86.9 Volume depletion, unspecified; D63.8 Anemia in other chronic diseases classified elsewhere; R64 Cachexia; F32.9 Major depressive disorder, single episode, unspecified; Z93.1 Gastrostomy status; Z86.73 Personal history of transient ischemic attack (TIA), and cerebral infarction without residual deficits; Z68.1 Body mass index [BMI] 19.9 or less, adult; Z93.4 Other artificial openings of gastrointestinal tract status; Z68.20 Body mass index [BMI] 20.0-20.9, adult; Z88.9 Allergy status to unspecified drugs, medicaments and biological substances; B96.20 Unspecified Escherichia coli [E. coli] as the cause of diseases classified elsewhere
CPT/HCPCS: 36415; 36600; 71045; 74018; 78580; 80048; 80053; 81003; 82270; 82375; 82550; 82553; 82805; 82962; 83036; 83540; 83550; 83735; 83880; 84100; 84295; 84484; 85025; 87077; 87186; 92610; 93005; 93306; 93970; 96360; 99285; C9113; J0690; J0696; J1650; J2405; J3480; J3490; J7050; J7060; J7070

== ENCOUNTER 2019-07-30 05:05 | Inpatient (IN) | payer MEDICARE, MEDICAID ==
[~2019-07-30] VITALS: Ht 167.6 cm; Wt 54.4 kg
[2019-07-30] MEDS ORDERED: SODIUM CHLORIDE 0.9% 1,000 ML IV ONE (05:08)
[2019-07-30] MEDS ORDERED: LEVOFLOXACIN 500MG PREMIX 100 ML IV ONE ×2 (05:15→07:00)
[2019-07-30 05:32] LABS: BG BASE EXCESS 5.2 mmol/L (-2.0-2.0); BG CARBOXYHEMOGLOBIN 0.1 % (0.5-1.5); BG DEOXYHEMOGLOBIN 1.8 % (0.0-5.0); BG FRACTION INSPIRED OXYGEN 32; BG HCO3 ACT 32.4 mmol/L (22.0-26.0); BG METHEMOGLOBIN 0.2 % (0.0-1.5); BG OXYGEN SATURATION 98.2 % (92.0-98.5); BG OXYHEMOGLOBIN 97.9 % (94.0-97.0); BG PCO2 60.5 mmHg (35.0-45.0); BG PH 7.347 (7.350-7.450); BG PO2 128.7 mmHg (75.0-100.0); BG SAMPLE SITE LEFT RADIAL; BG TOTAL HEMOGLOBIN 12.2 g/dL (12.0-18.0); BG VENT MODE NASAL CANNULA
[2019-07-30 05:47] LABS: BASOPHILS % 0.4 % (0.0-2.0); CHLORIDE 109 mEq/L (98-107); EOSINOPHILS % 1.1 % (0.0-5.0); HEMATOCRIT. 33.6 % (42.0-52.0); HEMOGLOBIN. 10.5 g/dL (14.0-18.0); LYMPHOCYTES % 26.5 % (20.0-50.0); MEAN CORPUSCULAR HEMOGLOBIN 28.9 pg (28.0-32.0); MEAN CORPUSCULAR VOLUME 92.3 fL (80.0-94.0); MONOCYTES % 14.4 % (2.0-8.0); NEUTROPHILS % 57.6 % (40.0-76.0); PLATELET 299 x1000/uL (130-400); RED BLOOD CELL COUNT 3.64 mill/uL (4.7-6.1); RED CELL DISTRIBUTION WIDTH 18.2 % (11.6-14.6)
[2019-07-30 05:48] LABS: INR 1.2; PROTHROMBIN TIME 12.6 sec (9.6-11.0)
[2019-07-30] MEDS ORDERED: SUCCINYLCHOLINE CHLORIDE 200MG/10ML IV ONE (05:48)
[2019-07-30] MEDS ORDERED: ETOMIDATE 2MG/ML 10ML VIAL IV ONE (05:48)
[2019-07-30] MEDS ORDERED: MAGNESIUM 2 G PREMIX 50 ML IV ONE (06:15)
[2019-07-30] MEDS ORDERED: DEXTROSE 50% WATER 50ML SYRINGE IV ONE (06:15)
[2019-07-30] MEDS ORDERED: MIDAZOLAM HCL 50 MG in DEXTROSE 5% WATER 40 ML IV ONE ×6 (06:15→10:45)
[2019-07-30] MEDS ORDERED: LORAZEPAM 2MG/ML CPJ IV ONE (06:15)
[2019-07-30] MEDS ORDERED: FENTANYL CITRATE/PF 500 MCG in SODIUM CHLORIDE 0.9% 40 ML IV PRN (06:15)
[2019-07-30] MEDS ORDERED: MIDAZOLAM HCL 2 MG/2 ML VIAL IV ONE (06:15)
[2019-07-30] MEDS ORDERED: ASPIRIN 300MG SUPP PR ONE (06:30)
[2019-07-30] MEDS ORDERED: ASPIRIN 81MG TABLET PO ONE (06:30)
[2019-07-30] MEDS ORDERED: NOREPINEPHRINE 4MG/250ML PMX 250 ML IV ONE ×2 (06:32→13:59)
[2019-07-30] MEDS ORDERED: NOREPINEPHRINE 4 MG in DEXT 5% WATER 246 ML IV ONE (06:45)
[2019-07-30 06:57] LABS: BG BASE EXCESS 2.2 mmol/L (-2.0-2.0); BG CARBOXYHEMOGLOBIN 0.3 % (0.5-1.5); BG DEOXYHEMOGLOBIN 1.7 % (0.0-5.0); BG FRACTION INSPIRED OXYGEN 40; BG HCO3 ACT 25.9 mmol/L (22.0-26.0); BG METHEMOGLOBIN 0.1 % (0.0-1.5); BG OXYGEN SATURATION 98.3 % (92.0-98.5); BG OXYHEMOGLOBIN 97.9 % (94.0-97.0); BG PCO2 36.6 mmHg (35.0-45.0); BG PH 7.467 (7.350-7.450); BG PO2 118.7 mmHg (75.0-100.0); BG SAMPLE SITE LEFT RADIAL; BG TIDAL VOLUME(mL) 450 mL; BG TOTAL HEMOGLOBIN 10.3 g/dL (12.0-18.0); BG VENT MODE VENT - A/C; BG VENT RATE 20 set
[2019-07-30] MEDS ORDERED: SODIUM CHLORIDE 0.9% 500 ML IV ONE (07:00)
[2019-07-30] MEDS: FENTANYL CITRATE/PF 500 MCG in SODIUM CHLORIDE 0.9% 40 ML IV PRN (08:06)
[2019-07-30 08:16] LABS: CREATINE KINASE MB FRACTION 1.3 ng/mL (0.5-3.6)
[2019-07-30] MEDS ORDERED: SODIUM CHLORIDE 0.45% 1,000 ML IV SCH (17:10)
[2019-07-30] MEDS ORDERED: ONDANSETRON HCL 4MG/2ML INJ IV PRN (17:15)
[2019-07-30] MEDS ORDERED: ACETAMINOPHEN 650MG/20.3ML UDC GT PRN (17:15)
[2019-07-30] MEDS ORDERED: PANTOPRAZOLE SODIUM 40 MG/VIAL IV SCH (21:30)
[2019-07-30] MEDS ORDERED: CEFEPIME 2,000 MG in DEXT 5% WATER 100 ML IV SCH ×2 (22:45→22:53)
[2019-07-30] MEDS ORDERED: DOXYCYCLINE 100 MG in DEXT 5% WATER 100 ML IV SCH ×2 (22:52→23:00)
[2019-07-31] VITALS (71 sets, daily range): BP systolic 92–159; BP diastolic 46–95
[2019-07-31] MEDS ORDERED: DEXTROSE 50% WATER 50ML SYRINGE IV PRN (04:00)
[2019-07-31] MEDS ORDERED: INSULIN LISPRO 100 UNITS/ML SUBCUT SCH (04:00)
[2019-07-31 05:07] LABS: BASOPHILS % 0.6 % (0.0-2.0); EOSINOPHILS % 3.3 % (0.0-5.0); HEMATOCRIT. 34.8 % (42.0-52.0); HEMOGLOBIN. 10.7 g/dL (14.0-18.0); LYMPHOCYTES % 20.6 % (20.0-50.0); MEAN CORPUSCULAR HEMOGLOBIN 28.2 pg (28.0-32.0); MEAN CORPUSCULAR VOLUME 92.1 fL (80.0-94.0); MEAN PLATELET VOLUME 9.2 fl (7.4-10.4); NEUTROPHILS % 62.5 % (40.0-76.0); PLATELET 311 x1000/uL (130-400); RED BLOOD CELL COUNT 3.77 mill/uL (4.7-6.1); RED CELL DISTRIBUTION WIDTH 18.4 % (11.6-14.6)
[2019-07-31 05:10] LABS: CHLORIDE 119 mEq/L (98-107)
[2019-07-31 05:48] LABS: VITAMIN B12 SERUM 965 pg/mL (211-911)
[2019-07-31] MEDS: INSULIN LISPRO 100 UNITS/ML SUBCUT SCH ×3 (06:00→17:14)
[2019-07-31 06:18] LABS: FOLIC ACID (FOLATE) SERUM > 20.00 ng/mL (>5.38)
[2019-07-31] MEDS: BLOOD SUGAR DIAGNOSTIC STRIP TEST SCH ×3 (07:42→17:13)
[2019-07-31] MEDS ORDERED: HYDROXYCHLOROQUINE SULFATE 200MG TABLET PO SCH (09:00)
[2019-07-31] MEDS: PANTOPRAZOLE SODIUM 40 MG/VIAL IV SCH (09:14)
[2019-07-31] MEDS: DEXTROSE 5% WATER 1,000 ML IV SCH (09:14)
[2019-07-31] MEDS: ASPIRIN 81MG EC TABLET PO SCH (09:19)
[2019-07-31] MEDS: ZINC SULFATE 220 MG ( 50 ) CAPSULE PO SCH (09:20)
[2019-07-31] MEDS: ASCORBIC ACID 500 MG TABLET PO SCH ×2 (09:20→21:32)
[2019-07-31 09:21] LABS: CREATINE KINASE 222 IU/L (39-308)
[2019-07-31] MEDS: DOXYCYCLINE 100 MG in DEXT 5% WATER 100 ML IV SCH ×2 (11:23→23:38)
[2019-07-31] MEDS: FENTANYL CITRATE/PF 500 MCG in SODIUM CHLORIDE 0.9% 40 ML IV PRN (11:39)
[2019-07-31 15:09] LABS: BG BASE EXCESS -0.9 mmol/L (-2.0-2.0); BG CARBOXYHEMOGLOBIN 0.3 % (0.5-1.5); BG DEOXYHEMOGLOBIN 1.6 % (0.0-5.0); BG HCO3 ACT 21.9 mmol/L (22.0-26.0); BG METHEMOGLOBIN 0.3 % (0.0-1.5); BG OXYGEN SATURATION 98.4 % (92.0-98.5); BG OXYHEMOGLOBIN 97.8 % (94.0-97.0); BG PCO2 30.1 mmHg (35.0-45.0); BG PH 7.479 (7.350-7.450); BG PO2 130.2 mmHg (75.0-100.0); BG SAMPLE SITE RIGHT RADIAL; BG TIDAL VOLUME(mL) 450 mL; BG TOTAL HEMOGLOBIN 11.4 g/dL (12.0-18.0); BG VENT MODE VENT - A/C; BG VENT RATE 20 set
[2019-07-31] MEDS: CEFEPIME 2,000 MG in DEXT 5% WATER 100 ML IV SCH (21:33)
[2019-08-01] VITALS (78 sets, daily range): BP systolic 79–150; BP diastolic 36–96
[2019-08-01] MEDS: FENTANYL CITRATE/PF 500 MCG in SODIUM CHLORIDE 0.9% 40 ML IV PRN (05:51)
[2019-08-01] MEDS: DEXTROSE 5% WATER 1,000 ML IV SCH (05:54)
[2019-08-01] MEDS: INSULIN LISPRO 100 UNITS/ML SUBCUT SCH ×4 (06:00→18:00)
[2019-08-01] MEDS: BLOOD SUGAR DIAGNOSTIC STRIP TEST SCH ×4 (06:24→18:09)
[2019-08-01 07:29] LABS: BASOPHILS % 0.8 % (0.0-2.0); EOSINOPHILS % 5.4 % (0.0-5.0); HEMATOCRIT. 30.1 % (42.0-52.0); HEMOGLOBIN. 9.3 g/dL (14.0-18.0); LYMPHOCYTES % 23.2 % (20.0-50.0); MEAN CORPUSCULAR HEMOGLOBIN 28.7 pg (28.0-32.0); MEAN CORPUSCULAR VOLUME 93.2 fL (80.0-94.0); MEAN PLATELET VOLUME 9.2 fl (7.4-10.4); MONOCYTES % 12.8 % (2.0-8.0); NEUTROPHILS % 57.8 % (40.0-76.0); PLATELET 271 x1000/uL (130-400); RED BLOOD CELL COUNT 3.23 mill/uL (4.7-6.1); RED CELL DISTRIBUTION WIDTH 18.7 % (11.6-14.6)
[2019-08-01 08:01] LABS: CHLORIDE 115 mEq/L (98-107)
[2019-08-01] MEDS: ZINC SULFATE 220 MG ( 50 ) CAPSULE PO SCH (08:09)
[2019-08-01] MEDS: PANTOPRAZOLE SODIUM 40 MG/VIAL IV SCH (08:09)
[2019-08-01] MEDS: ASCORBIC ACID 500 MG TABLET PO SCH ×2 (08:09→20:49)
[2019-08-01] MEDS: ASPIRIN 81MG EC TABLET PO SCH (08:09)
[2019-08-01 08:16] LABS: PHOSPHORUS 4.1 mg/dL (2.5-4.9)
[2019-08-01 10:04] LABS: BG CARBOXYHEMOGLOBIN 0.3 % (0.5-1.5); BG DEOXYHEMOGLOBIN 0.8 % (0.0-5.0); BG FRACTION INSPIRED OXYGEN 35; BG HCO3 ACT 23.4 mmol/L (22.0-26.0); BG METHEMOGLOBIN 0.3 % (0.0-1.5); BG OXYGEN SATURATION 99.2 % (92.0-98.5); BG OXYHEMOGLOBIN 98.6 % (94.0-97.0); BG PCO2 42.6 mmHg (35.0-45.0); BG PH 7.358 (7.350-7.450); BG PO2 180.2 mmHg (75.0-100.0); BG SAMPLE SITE RIGHT RADIAL; BG TIDAL VOLUME(mL) 450 mL; BG TOTAL HEMOGLOBIN 9.4 g/dL (12.0-18.0); BG VENT MODE VENT - A/C; BG VENT RATE 16 set
[2019-08-01] MEDS: DOXYCYCLINE 100 MG in DEXT 5% WATER 100 ML IV SCH (12:22)
[2019-08-01] MEDS: METHYLPREDNISOLONE SOD SUCC 40 MG/ML VIAL IV SCH ×2 (12:22→20:49)
[2019-08-01 14:26] LABS: CLARITY URINE CLEAR (CLEAR); COLOR URINE YELLOW (YELLOW); KETONES URINE TRACE (NEGATIVE); LEUKOCYTE ESTERASE URINE 2+ (NEGATIVE); NITRITE URINE NEGATIVE (NEGATIVE); OCCULT BLOOD URINE NEGATIVE (NEGATIVE); PROTEIN URINE 1+ (NEGATIVE); SPECIFIC GRAVITY URINE 1.017 (1.005-1.030); UROBILINOGEN URINE 0.2 E.U./dL (0.2-1.0)
[2019-08-01] MEDS ORDERED: IOHEXOL-350 100 ML BOTTLE ONE (14:33)
[2019-08-01] MEDS: CEFEPIME 2,000 MG in DEXT 5% WATER 100 ML IV SCH (20:49)
[2019-08-01] MEDS ORDERED: SOTALOL HCL 80MG TABLET PO SCH (21:00)
[2019-08-01] MEDS ORDERED: DILTIAZEM HCL 5MG/ML 5ML VIAL IV NR ×2 (21:45→23:30)
[2019-08-02] VITALS (50 sets, daily range): BP systolic 78–153; BP diastolic 36–93
[2019-08-02] MEDS ORDERED: DILTIAZEM HCL 30MG TABLET PO NR
[2019-08-02] MEDS ORDERED: POTASSIUM CHLORIDE 20MEQ TABLET SR PO NR
[2019-08-02] MEDS: BLOOD SUGAR DIAGNOSTIC STRIP TEST SCH ×4 (00:15→17:13)
[2019-08-02] MEDS: DOXYCYCLINE 100 MG in DEXT 5% WATER 100 ML IV SCH ×2 (00:23→11:21)
[2019-08-02] MEDS: INSULIN LISPRO 100 UNITS/ML SUBCUT SCH ×4 (00:24→17:13)
[2019-08-02] MEDS: DEXTROSE 5% WATER 1,000 ML IV SCH ×2 (00:25→22:23)
[2019-08-02] MEDS ORDERED: DILTIAZEM HCL 125 MG in DEXT 5% WATER 100 ML IV PRN (01:30)
[2019-08-02] MEDS: METHYLPREDNISOLONE SOD SUCC 40 MG/ML VIAL IV SCH ×3 (06:55→22:20)
[2019-08-02 07:25] LABS: CHLORIDE 114 mEq/L (98-107)
[2019-08-02 07:33] LABS: TOTAL IRON BINDING CAPACITY 178 ug/dL (250-450)
[2019-08-02 07:41] LABS: BG BASE EXCESS -3.6 mmol/L (-2.0-2.0); BG CARBOXYHEMOGLOBIN 0.1 % (0.5-1.5); BG DEOXYHEMOGLOBIN 1.1 % (0.0-5.0); BG FRACTION INSPIRED OXYGEN 35; BG HCO3 ACT 19.9 mmol/L (22.0-26.0); BG METHEMOGLOBIN 0.1 % (0.0-1.5); BG OXYGEN SATURATION 98.9 % (92.0-98.5); BG OXYHEMOGLOBIN 98.7 % (94.0-97.0); BG SAMPLE SITE RIGHT RADIAL; BG TIDAL VOLUME(mL) 450 mL; BG TOTAL HEMOGLOBIN 8.9 g/dL (12.0-18.0); BG VENT MODE VENT - A/C; BG VENT RATE 16 set
[2019-08-02 08:39] LABS: BASOPHILS % 0.3 % (0.0-2.0); LYMPHOCYTES % 10.6 % (20.0-50.0); MEAN CORPUSCULAR HEMOGLOBIN 28.7 pg (28.0-32.0); MEAN CORPUSCULAR VOLUME 91.6 fL (80.0-94.0); MEAN PLATELET VOLUME 8.8 fl (7.4-10.4); MONOCYTES % 2.1 % (2.0-8.0); PLATELET 243 x1000/uL (130-400); RED BLOOD CELL COUNT 3.06 mill/uL (4.7-6.1)
[2019-08-02 08:44] LABS: HEMOGLOBIN. 8.8 g/dL (14.0-18.0)
[2019-08-02] MEDS: PANTOPRAZOLE SODIUM 40 MG/VIAL IV SCH ×2 (09:04→17:12)
[2019-08-02] MEDS: ZINC SULFATE 220 MG ( 50 ) CAPSULE PO SCH (09:04)
[2019-08-02] MEDS: DILTIAZEM HCL 90MG TABLET PO SCH ×2 (09:04→21:00)
[2019-08-02] MEDS: ASPIRIN 81MG EC TABLET PO SCH (09:04)
[2019-08-02] MEDS: ASCORBIC ACID 500 MG TABLET PO SCH ×2 (09:04→22:22)
[2019-08-02] MEDS: DOCUSATE SODIUM SUGAR FREE 100MG/10ML UDC NG SCH ×2 (11:21→17:12)
[2019-08-02] MEDS ORDERED: ENOXAPARIN 60MG/0.6ML SYR SUBCUT SCH (12:00)
[2019-08-02 13:10] LABS: BG BASE EXCESS -1.2 mmol/L (-2.0-2.0); BG CARBOXYHEMOGLOBIN 0.3 % (0.5-1.5); BG CPAP (cmH2O) 0 cm(H2O); BG DEOXYHEMOGLOBIN 4.9 % (0.0-5.0); BG HCO3 ACT 23.2 mmol/L (22.0-26.0); BG METHEMOGLOBIN 0.2 % (0.0-1.5); BG OXYGEN SATURATION 95.1 % (92.0-98.5); BG OXYHEMOGLOBIN 94.6 % (94.0-97.0); BG PCO2 37.1 mmHg (35.0-45.0); BG PH 7.414 (7.350-7.450); BG PO2 73.9 mmHg (75.0-100.0); BG SAMPLE SITE RIGHT RADIAL; BG TOTAL HEMOGLOBIN 6.3 g/dL (12.0-18.0); BG VENT MODE VENT - CPAP
[2019-08-02] MEDS: ENOXAPARIN 60MG/0.6ML SYR SUBCUT SCH ×2 (13:31→22:21)
[2019-08-02] MEDS: DIGOXIN 125MCG TABLET PO SCH (17:12)
[2019-08-02] MEDS: CEFEPIME 2,000 MG in DEXT 5% WATER 100 ML IV SCH (22:20)
[2019-08-03] VITALS (38 sets, daily range): BP systolic 84–137; BP diastolic 30–99
[2019-08-03] MEDS: DOXYCYCLINE 100 MG in DEXT 5% WATER 100 ML IV SCH ×2 (01:08→11:38)
[2019-08-03] MEDS: DILTIAZEM HCL 90MG TABLET PO SCH ×4 (03:47→21:15)
[2019-08-03] MEDS: METHYLPREDNISOLONE SOD SUCC 40 MG/ML VIAL IV SCH (05:18)
[2019-08-03] MEDS: BLOOD SUGAR DIAGNOSTIC STRIP TEST SCH ×4 (05:52→17:43)
[2019-08-03] MEDS: INSULIN LISPRO 100 UNITS/ML SUBCUT SCH ×4 (05:52→17:42)
[2019-08-03 06:19] LABS: BASOPHILS % 0.1 % (0.0-2.0); HEMATOCRIT. 27.3 % (42.0-52.0); HEMOGLOBIN. 8.5 g/dL (14.0-18.0); LYMPHOCYTES % 8.3 % (20.0-50.0); MEAN CORPUSCULAR HEMOGLOBIN 28.8 pg (28.0-32.0); MEAN CORPUSCULAR VOLUME 92.3 fL (80.0-94.0); MEAN PLATELET VOLUME 8.9 fl (7.4-10.4); NEUTROPHILS % 86.6 % (40.0-76.0); PLATELET 258 x1000/uL (130-400); RED BLOOD CELL COUNT 2.96 mill/uL (4.7-6.1)
[2019-08-03 06:30] LABS: CHLORIDE 111 mEq/L (98-107)
[2019-08-03] MEDS: ASPIRIN 81MG EC TABLET PO SCH (09:02)
[2019-08-03] MEDS: DOCUSATE SODIUM SUGAR FREE 100MG/10ML UDC NG SCH ×2 (09:04→17:41)
[2019-08-03] MEDS: PANTOPRAZOLE SODIUM 40 MG/VIAL IV SCH ×2 (09:04→17:41)
[2019-08-03] MEDS: ASCORBIC ACID 500 MG TABLET PO SCH ×2 (09:04→21:15)
[2019-08-03] MEDS: ZINC SULFATE 220 MG ( 50 ) CAPSULE PO SCH (09:05)
[2019-08-03] MEDS: ENOXAPARIN 60MG/0.6ML SYR SUBCUT SCH ×2 (09:06→21:16)
[2019-08-03] MEDS ORDERED: POTASSIUM CHLORIDE 20MEQ TABLET SR PO NR (09:15)
[2019-08-03] MEDS ORDERED: DIGOXIN 500MCG/2ML AMP IV NR (10:11)
[2019-08-03] MEDS: AMIODARONE HCL 200 MG TABLET PO SCH ×2 (11:16→11:42)
[2019-08-03] MEDS: DEXTROSE 5% WATER 1,000 ML IV SCH (16:45)
[2019-08-03] MEDS: DIGOXIN 125MCG TABLET PO SCH (17:41)
[2019-08-03] MEDS: CEFEPIME 2,000 MG in DEXT 5% WATER 100 ML IV SCH (21:15)
[2019-08-04] VITALS (33 sets, daily range): BP systolic 91–155; BP diastolic 42–83
[2019-08-04] MEDS: DOXYCYCLINE 100 MG in DEXT 5% WATER 100 ML IV SCH ×2 (00:51→10:30)
[2019-08-04] MEDS: INSULIN LISPRO 100 UNITS/ML SUBCUT SCH ×4 (06:00→17:12)
[2019-08-04] MEDS: DILTIAZEM HCL 90MG TABLET PO SCH ×2 (06:08→21:19)
[2019-08-04] MEDS: BLOOD SUGAR DIAGNOSTIC STRIP TEST SCH ×5 (06:08→23:32)
[2019-08-04 06:12] LABS: BASOPHILS % 0.1 % (0.0-2.0); HEMATOCRIT. 23.8 % (42.0-52.0); HEMOGLOBIN. 7.4 g/dL (14.0-18.0); LYMPHOCYTES % 10.3 % (20.0-50.0); MEAN CORPUSCULAR HEMOGLOBIN 28.2 pg (28.0-32.0); MEAN CORPUSCULAR VOLUME 90.8 fL (80.0-94.0); MONOCYTES % 12.9 % (2.0-8.0); NEUTROPHILS % 76.7 % (40.0-76.0); PLATELET 223 x1000/uL (130-400); RED BLOOD CELL COUNT 2.62 mill/uL (4.7-6.1); RED CELL DISTRIBUTION WIDTH 17.8 % (11.6-14.6)
[2019-08-04 06:25] LABS: CHLORIDE 115 mEq/L (98-107)
[2019-08-04] MEDS: ASPIRIN 81MG EC TABLET PO SCH (08:42)
[2019-08-04] MEDS: ASCORBIC ACID 500 MG TABLET PO SCH ×2 (08:42→20:28)
[2019-08-04] MEDS: PREDNISONE 20MG TABLET PO SCH (08:42)
[2019-08-04] MEDS: AMIODARONE HCL 200 MG TABLET PO SCH (08:42)
[2019-08-04] MEDS: DOCUSATE SODIUM SUGAR FREE 100MG/10ML UDC NG SCH ×2 (08:43→16:06)
[2019-08-04] MEDS: ZINC SULFATE 220 MG ( 50 ) CAPSULE PO SCH (08:43)
[2019-08-04] MEDS: PANTOPRAZOLE SODIUM 40 MG/VIAL IV SCH ×2 (08:43→16:06)
[2019-08-04] MEDS: LACTULOSE 20G/30ML UDC PO SCH ×3 (10:30→21:19)
[2019-08-04] MEDS: ENOXAPARIN 60MG/0.6ML SYR SUBCUT SCH ×2 (10:30→21:20)
[2019-08-04] MEDS ORDERED: POTASSIUM CHLORIDE 20MEQ/PACKET PO SCH (11:45)
[2019-08-04] MEDS ORDERED: DILTIAZEM HCL 60MG TABLET PO SCH (14:00)
[2019-08-04] MEDS ORDERED: DIGOXIN 500MCG/2ML AMP IV NR (17:00)
[2019-08-04] MEDS: CEFEPIME 2,000 MG in DEXT 5% WATER 100 ML IV SCH (20:28)
[2019-08-04] MEDS: DOXYCYCLINE HYCLATE 100MG CAPSULE PO SCH (23:31)
[2019-08-05] VITALS (12 sets, daily range): BP systolic 90–156; BP diastolic 45–90
[2019-08-05] MEDS: DILTIAZEM HCL 90MG TABLET PO SCH ×3 (05:04→21:36)
[2019-08-05] MEDS: LACTULOSE 20G/30ML UDC PO SCH ×3 (05:04→21:34)
[2019-08-05] MEDS: INSULIN LISPRO 100 UNITS/ML SUBCUT SCH ×5 (05:55→23:59)
[2019-08-05] MEDS: BLOOD SUGAR DIAGNOSTIC STRIP TEST SCH ×4 (05:55→23:28)
[2019-08-05 06:18] LABS: HEMATOCRIT. 27.8 % (42.0-52.0); HEMOGLOBIN. 8.6 g/dL (14.0-18.0); MEAN CORPUSCULAR HEMOGLOBIN 28.5 pg (28.0-32.0); MEAN PLATELET VOLUME 8.9 fl (7.4-10.4); PLATELET 251 x1000/uL (130-400); RED BLOOD CELL COUNT 3.02 mill/uL (4.7-6.1); RED CELL DISTRIBUTION WIDTH 17.8 % (11.6-14.6)
[2019-08-05] MEDS ORDERED: LOSARTAN POTASSIUM 50 MG TABLET GT SCH (09:00)
[2019-08-05] MEDS ORDERED: LOSARTAN POTASSIUM 100 MG TABLET PO SCH (09:00)
[2019-08-05] MEDS ORDERED: DOCUSATE SODIUM 100MG CAPSULE PO SCH (09:00)
[2019-08-05] MEDS: MEGESTROL ACETATE 400 MG/10 ML UDC PO SCH (09:22)
[2019-08-05] MEDS: FOLIC ACID 1MG TABLET GT SCH (09:23)
[2019-08-05] MEDS: AMIODARONE HCL 200 MG TABLET PO SCH (09:23)
[2019-08-05] MEDS: PANTOPRAZOLE SODIUM 40 MG/VIAL IV SCH ×2 (09:23→17:47)
[2019-08-05] MEDS: ASPIRIN 81MG EC TABLET PO SCH (09:23)
[2019-08-05] MEDS: PREDNISONE 20MG TABLET PO SCH (09:23)
[2019-08-05] MEDS: ZINC SULFATE 220 MG ( 50 ) CAPSULE PO SCH (09:23)
[2019-08-05] MEDS: ASCORBIC ACID 500 MG TABLET PO SCH ×2 (09:23→20:22)
[2019-08-05] MEDS ORDERED: IPRATROPIUM/ALBUTEROL 0.5-3(2.5)MG/3ML NEB HHN PRN (10:30)
[2019-08-05 10:47] LABS: PLATELET ESTIMATE NORMAL
[2019-08-05 13:08] LABS: CHLORIDE 122 mEq/L (98-107)
[2019-08-05 13:19] LABS: PHOSPHORUS 0.6 mg/dL (2.5-4.9)
[2019-08-05] MEDS: DOXYCYCLINE HYCLATE 100MG CAPSULE PO SCH ×2 (13:37→23:28)
[2019-08-05] MEDS: ENOXAPARIN 60MG/0.6ML SYR SUBCUT SCH ×2 (13:38→21:34)
[2019-08-05] MEDS ORDERED: POTASSIUM PHOS,M-BASIC-D-BASIC 20 MMOL in DEXT 5% WATER 243.3333 ML IV SCH (16:00)
[2019-08-05] MEDS: CEFEPIME 2,000 MG in DEXT 5% WATER 100 ML IV SCH (20:22)
[2019-08-06] VITALS (12 sets, daily range): BP systolic 104–142; BP diastolic 45–77
[2019-08-06] MEDS ORDERED: DILTIAZEM HCL 5MG/ML 5ML VIAL IV SCH (02:15)
[2019-08-06] MEDS: BLOOD SUGAR DIAGNOSTIC STRIP TEST SCH ×4 (05:17→23:40)
[2019-08-06] MEDS: DILTIAZEM HCL 90MG TABLET PO SCH ×3 (05:17→22:42)
[2019-08-06] MEDS: LACTULOSE 20G/30ML UDC PO SCH ×3 (05:17→22:42)
[2019-08-06] MEDS: INSULIN LISPRO 100 UNITS/ML SUBCUT SCH ×4 (06:00→23:40)
[2019-08-06 06:41] LABS: HEMATOCRIT. 26.1 % (42.0-52.0); HEMOGLOBIN. 8.2 g/dL (14.0-18.0); MEAN CORPUSCULAR HEMOGLOBIN 28.6 pg (28.0-32.0); MEAN PLATELET VOLUME 8.9 fl (7.4-10.4); PLATELET 262 x1000/uL (130-400); RED BLOOD CELL COUNT 2.87 mill/uL (4.7-6.1); RED CELL DISTRIBUTION WIDTH 17.8 % (11.6-14.6)
[2019-08-06 06:50] LABS: CHLORIDE 122 mEq/L (98-107)
[2019-08-06 06:57] LABS: PHOSPHORUS 1.1 mg/dL (2.5-4.9)
[2019-08-06] MEDS: PANTOPRAZOLE SODIUM 40 MG/VIAL IV SCH ×2 (08:10→16:42)
[2019-08-06] MEDS: ASPIRIN 81MG EC TABLET PO SCH (08:10)
[2019-08-06] MEDS: FOLIC ACID 1MG TABLET GT SCH (08:10)
[2019-08-06] MEDS: MEGESTROL ACETATE 400 MG/10 ML UDC PO SCH (08:10)
[2019-08-06] MEDS: AMIODARONE HCL 200 MG TABLET PO SCH (08:10)
[2019-08-06] MEDS: ZINC SULFATE 220 MG ( 50 ) CAPSULE PO SCH (08:10)
[2019-08-06] MEDS: ASCORBIC ACID 500 MG TABLET PO SCH ×2 (08:11→22:42)
[2019-08-06] MEDS: PREDNISONE 20MG TABLET PO SCH (08:11)
[2019-08-06] MEDS: DOXYCYCLINE HYCLATE 100MG CAPSULE PO SCH ×2 (10:10→22:44)
[2019-08-06] MEDS: DOCUSATE SODIUM SUGAR FREE 100MG/10ML UDC GT SCH (10:10)
[2019-08-06] MEDS: ENOXAPARIN 60MG/0.6ML SYR SUBCUT SCH ×2 (10:11→22:42)
[2019-08-06] MEDS ORDERED: IPRATROPIUM/ALBUTEROL 0.5-3(2.5)MG/3ML NEB HHN SCH (12:00)
[2019-08-06] MEDS: DEXTROSE 5% WATER 1,000 ML IV SCH (13:41)
[2019-08-06 13:58] LABS: PLATELET ESTIMATE NORMAL
[2019-08-06] MEDS: IPRATROPIUM/ALBUTEROL 0.5-3(2.5)MG/3ML NEB HHN SCH (14:00)
[2019-08-06] MEDS ORDERED: GUAIFENESIN 600MG ER TABLET PO SCH (21:00)
[2019-08-07] VITALS (12 sets, daily range): BP systolic 112–146; BP diastolic 48–77
[2019-08-07] MEDS: IPRATROPIUM/ALBUTEROL 0.5-3(2.5)MG/3ML NEB HHN SCH ×3 (00:48→15:42)
[2019-08-07] MEDS: ACETYLCYSTEINE 100MG/ML 10% VIAL 4ML INH SCH ×3 (00:48→15:42)
[2019-08-07] MEDS: DEXTROSE 5% WATER 1,000 ML IV SCH ×2 (05:27→21:20)
[2019-08-07] MEDS: DILTIAZEM HCL 90MG TABLET PO SCH ×3 (05:28→21:09)
[2019-08-07] MEDS: BLOOD SUGAR DIAGNOSTIC STRIP TEST SCH ×3 (05:28→17:22)
[2019-08-07] MEDS: INSULIN LISPRO 100 UNITS/ML SUBCUT SCH ×3 (05:28→17:24)
[2019-08-07] MEDS: LACTULOSE 20G/30ML UDC PO SCH ×3 (05:28→21:11)
[2019-08-07 07:17] LABS: CHLORIDE 118 mEq/L (98-107)
[2019-08-07 07:26] LABS: BASOPHILS % 0.1 % (0.0-2.0); EOSINOPHILS % 0.2 % (0.0-5.0); HEMATOCRIT. 26.8 % (42.0-52.0); HEMOGLOBIN. 8.5 g/dL (14.0-18.0); LYMPHOCYTES % 25.4 % (20.0-50.0); MEAN CORPUSCULAR HEMOGLOBIN 28.8 pg (28.0-32.0); MEAN CORPUSCULAR VOLUME 91.3 fL (80.0-94.0); MEAN PLATELET VOLUME 8.9 fl (7.4-10.4); NEUTROPHILS % 63.3 % (40.0-76.0); PLATELET 258 x1000/uL (130-400); RED BLOOD CELL COUNT 2.94 mill/uL (4.7-6.1); RED CELL DISTRIBUTION WIDTH 18.4 % (11.6-14.6)
[2019-08-07] MEDS: ZINC SULFATE 220 MG ( 50 ) CAPSULE PO SCH (09:08)
[2019-08-07] MEDS: MEGESTROL ACETATE 400 MG/10 ML UDC PO SCH (09:08)
[2019-08-07] MEDS: DOCUSATE SODIUM SUGAR FREE 100MG/10ML UDC GT SCH (09:08)
[2019-08-07] MEDS: ASPIRIN 81MG EC TABLET PO SCH (09:09)
[2019-08-07] MEDS: PREDNISONE 20MG TABLET PO SCH (09:09)
[2019-08-07] MEDS: PANTOPRAZOLE SODIUM 40 MG/VIAL IV SCH ×2 (09:09→17:22)
[2019-08-07] MEDS: AMIODARONE HCL 200 MG TABLET PO SCH (09:09)
[2019-08-07] MEDS: ASCORBIC ACID 500 MG TABLET PO SCH ×2 (09:09→21:07)
[2019-08-07] MEDS ORDERED: POTASSIUM CHLORIDE 20MEQ/PACKET PO SCH (09:15)
[2019-08-07] MEDS: ENOXAPARIN 60MG/0.6ML SYR SUBCUT SCH ×2 (09:16→21:10)
[2019-08-07] MEDS: DOXYCYCLINE HYCLATE 100MG CAPSULE PO SCH (11:54)
[2019-08-08] VITALS (12 sets, daily range): BP systolic 116–152; BP diastolic 51–93
[2019-08-08] MEDS: BLOOD SUGAR DIAGNOSTIC STRIP TEST SCH ×5 (00:05→23:47)
[2019-08-08] MEDS: IPRATROPIUM/ALBUTEROL 0.5-3(2.5)MG/3ML NEB HHN SCH ×4 (00:10→14:00)
[2019-08-08] MEDS: ACETYLCYSTEINE 100MG/ML 10% VIAL 4ML INH SCH ×3 (00:10→08:20)
[2019-08-08 05:59] LABS: HEMATOCRIT. 28.2 % (42.0-52.0); HEMOGLOBIN. 8.7 g/dL (14.0-18.0); MEAN CORPUSCULAR HEMOGLOBIN 28.6 pg (28.0-32.0); MEAN CORPUSCULAR VOLUME 92.7 fL (80.0-94.0); MEAN PLATELET VOLUME 8.9 fl (7.4-10.4); PLATELET 230 x1000/uL (130-400); RED BLOOD CELL COUNT 3.04 mill/uL (4.7-6.1); RED CELL DISTRIBUTION WIDTH 18.7 % (11.6-14.6)
[2019-08-08] MEDS: INSULIN LISPRO 100 UNITS/ML SUBCUT SCH ×4 (06:00→18:00)
[2019-08-08] MEDS: LACTULOSE 20G/30ML UDC PO SCH ×3 (06:00→23:45)
[2019-08-08 06:14] LABS: CHLORIDE 117 mEq/L (98-107)
[2019-08-08] MEDS: DILTIAZEM HCL 90MG TABLET PO SCH ×3 (06:17→23:46)
[2019-08-08] MEDS: MEGESTROL ACETATE 400 MG/10 ML UDC PO SCH (09:00)
[2019-08-08] MEDS: AMIODARONE HCL 200 MG TABLET PO SCH (10:09)
[2019-08-08] MEDS: ASPIRIN 81MG EC TABLET PO SCH (10:10)
[2019-08-08] MEDS: ASCORBIC ACID 500 MG TABLET PO SCH ×2 (10:10→23:48)
[2019-08-08] MEDS: DOCUSATE SODIUM SUGAR FREE 100MG/10ML UDC GT SCH (10:10)
[2019-08-08] MEDS: PREDNISONE 20MG TABLET PO SCH (10:10)
[2019-08-08] MEDS: ZINC SULFATE 220 MG ( 50 ) CAPSULE PO SCH (10:10)
[2019-08-08] MEDS: PANTOPRAZOLE SODIUM 40 MG/VIAL IV SCH ×2 (10:10→23:45)
[2019-08-08] MEDS: ENOXAPARIN 60MG/0.6ML SYR SUBCUT SCH ×2 (10:11→23:47)
[2019-08-08 12:03] LABS: NUCLEATED RED BLOOD CELLS 1 /100 WBC; PLATELET ESTIMATE NORMAL
[2019-08-08] MEDS ORDERED: P20 MT (14:41)
[2019-08-08] MEDS ORDERED: PANT40TA4 MT (14:41)
[2019-08-08] MEDS ORDERED: AMIO100T4 PO (14:41)
[2019-08-08] MEDS ORDERED: CARLA24 MT (14:41)
[2019-08-08] MEDS ORDERED: APIX5TAB MT (14:41)
[2019-08-08] MEDS: DEXTROSE 5% WATER 1,000 ML IV SCH (14:58)
[2019-08-09] VITALS (12 sets, daily range): BP systolic 122–164; BP diastolic 53–81
[2019-08-09] MEDS: IPRATROPIUM/ALBUTEROL 0.5-3(2.5)MG/3ML NEB HHN SCH ×3 (02:00→10:14)
[2019-08-09] MEDS: ACETYLCYSTEINE 100MG/ML 10% VIAL 4ML INH SCH ×3 (02:00→10:14)
[2019-08-09] MEDS: INSULIN LISPRO 100 UNITS/ML SUBCUT SCH ×4 (06:00→16:56)
[2019-08-09] MEDS: DILTIAZEM HCL 90MG TABLET PO SCH ×3 (06:00→21:24)
[2019-08-09] MEDS: LACTULOSE 20G/30ML UDC PO SCH ×3 (06:00→22:02)
[2019-08-09] MEDS: BLOOD SUGAR DIAGNOSTIC STRIP TEST SCH ×3 (06:37→16:54)
[2019-08-09] MEDS: ZINC SULFATE 220 MG ( 50 ) CAPSULE PO SCH (09:00)
[2019-08-09] MEDS: PREDNISONE 20MG TABLET PO SCH (09:00)
[2019-08-09] MEDS: MEGESTROL ACETATE 400 MG/10 ML UDC PO SCH (09:00)
[2019-08-09] MEDS: AMIODARONE HCL 200 MG TABLET PO SCH (09:00)
[2019-08-09] MEDS: DOCUSATE SODIUM SUGAR FREE 100MG/10ML UDC GT SCH (09:00)
[2019-08-09] MEDS: ASCORBIC ACID 500 MG TABLET PO SCH ×2 (09:00→21:24)
[2019-08-09] MEDS: ASPIRIN 81MG EC TABLET PO SCH (09:00)
[2019-08-09] MEDS: ENOXAPARIN 60MG/0.6ML SYR SUBCUT SCH (10:00)
[2019-08-09] MEDS: PANTOPRAZOLE SODIUM 40 MG/VIAL IV SCH ×2 (10:22→17:00)
[2019-08-09] MEDS: DEXTROSE 5% WATER 1,000 ML IV SCH (10:23)
[2019-08-09] MEDS ORDERED: GENTAMICIN/NS IRRIGATION 500 ML IR ONE (16:40)
[2019-08-09] MEDS ORDERED: LIDOCAINE HCL 1% 20ML VIAL (Pyxis) INJ ONE (16:40)
[2019-08-09] MEDS ORDERED: GENTAMICIN SULF 40MG/ML 2ML VIAL ONE (16:40)
[2019-08-09] MEDS ORDERED: CEFAZOLIN 1000MG PREMIX 50 ML IV ONE ×2 (17:14→17:58)
[2019-08-09] MEDS ORDERED: IOHEXOL-300 100 ML BOTTLE ONE (18:03)
[2019-08-09] MEDS ORDERED: FENTANYL CITRATE/PF 50MCG/ML 2ML VIAL ONE (18:15)
[2019-08-09] MEDS ORDERED: PROPOFOL 200MG/20ML VIAL IV ONE (18:16)
[2019-08-09] MEDS ORDERED: MIDAZOLAM HCL 2 MG/2 ML VIAL ONE (18:16)
[2019-08-09] MEDS ORDERED: LABETALOL 5MG/ML SYR 20 MG/4 ML SYRINGE IV PRN (18:45)
[2019-08-09] MEDS ORDERED: ONDANSETRON HCL 4MG/2ML INJ IV PRN (18:45)
[2019-08-09] MEDS ORDERED: HYDROMORPHONE HCL/PF 2MG/ML CPJ IV PRN (18:45)
[2019-08-09] MEDS ORDERED: MEPERIDINE HCL/PF 25MG/ML CPJ IV PRN (18:45)
[2019-08-09] MEDS ORDERED: DEXAMETHASONE 4MG/ML 1ML VIAL ONE (19:03)
[2019-08-09] MEDS ORDERED: ONDANSETRON HCL 4MG/2ML INJ ONE (19:03)
[2019-08-09] MEDS ORDERED: HYDROCODONE/ACETAMINOPHEN 5/325MG TABLET PO PRN (20:00)
[2019-08-09] MEDS ORDERED: ENOXAPARIN 60MG/0.6ML SYR SUBCUT SCH (21:00)
[2019-08-10] VITALS (10 sets, daily range): BP systolic 96–141; BP diastolic 41–62
[2019-08-10] MEDS: DEXTROSE 5% WATER 1,000 ML IV SCH (00:20)
[2019-08-10] MEDS: CEFAZOLIN 1000MG PREMIX 50 ML IV SCH ×2 (02:27→10:27)
[2019-08-10] MEDS: BLOOD SUGAR DIAGNOSTIC STRIP TEST SCH ×3 (06:00→12:00)
[2019-08-10] MEDS: INSULIN LISPRO 100 UNITS/ML SUBCUT SCH ×3 (06:07→12:00)
[2019-08-10] MEDS: LACTULOSE 20G/30ML UDC PO SCH ×2 (06:08→14:00)
[2019-08-10] MEDS: DILTIAZEM HCL 90MG TABLET PO SCH (06:08)
[2019-08-10 07:21] LABS: CHLORIDE 115 mEq/L (98-107)
[2019-08-10 07:37] LABS: BASOPHILS % 0.2 % (0.0-2.0); HEMATOCRIT. 30.5 % (42.0-52.0); HEMOGLOBIN. 9.5 g/dL (14.0-18.0); LYMPHOCYTES % 9.1 % (20.0-50.0); MEAN CORPUSCULAR HEMOGLOBIN 28.9 pg (28.0-32.0); MEAN PLATELET VOLUME 8.9 fl (7.4-10.4); MONOCYTES % 4.5 % (2.0-8.0); NEUTROPHILS % 86.2 % (40.0-76.0); PLATELET 263 x1000/uL (130-400); RED BLOOD CELL COUNT 3.28 mill/uL (4.7-6.1); RED CELL DISTRIBUTION WIDTH 19.1 % (11.6-14.6)
[2019-08-10] MEDS: MEGESTROL ACETATE 400 MG/10 ML UDC PO SCH (08:29)
[2019-08-10] MEDS: ASPIRIN 81MG EC TABLET PO SCH (08:30)
[2019-08-10] MEDS: ASCORBIC ACID 500 MG TABLET PO SCH (08:30)
[2019-08-10] MEDS: PREDNISONE 20MG TABLET PO SCH (08:30)
[2019-08-10] MEDS: AMIODARONE HCL 200 MG TABLET PO SCH (08:30)
[2019-08-10] MEDS: ZINC SULFATE 220 MG ( 50 ) CAPSULE PO SCH (08:30)
[2019-08-10] MEDS: PANTOPRAZOLE SODIUM 40 MG/VIAL IV SCH (08:30)
[2019-08-10] MEDS: DOCUSATE SODIUM SUGAR FREE 100MG/10ML UDC GT SCH (08:32)
[2019-08-10] MEDS: IPRATROPIUM/ALBUTEROL 0.5-3(2.5)MG/3ML NEB HHN SCH ×2 (10:08→15:44)
[2019-08-10] MEDS: ACETYLCYSTEINE 100MG/ML 10% VIAL 4ML INH SCH ×2 (10:08→15:44)
[2019-08-10] MEDS ORDERED: APIXABAN 5 MG TABLET PO SCH (17:00)
[2019-08-17] MEDS ORDERED: APIXABAN 5 MG TABLET PO SCH (17:00)
== END 2019-08-10 16:35 | DRG 710 ==
LOC: ER 05:05 → MICUSO 06:43 → EDBEDREQTM 06:45 → EDBEDREQ 06:45 → ENRESERV 07-31 01:56 → 5EST 08-01 15:24 → CVICU 08-02 03:18 → 3WST 08-04 17:27 → UNDODISIN 08-08 18:00
PROVIDERS: ADMIT Internal Medicine; ATTEND Internal Medicine
PROC: 5A1945Z Respiratory Ventilation, 24-96 Consecutive Hours (ICD-10-PCS; principal; 2019-07-30)
PROC: 0BH17EZ Insertion of Endotracheal Airway into Trachea, Via Natural or Artificial Opening (ICD-10-PCS; 2019-07-30)
PROC: 02H63JZ Insertion of Pacemaker Lead into Right Atrium, Percutaneous Approach (ICD-10-PCS; 2019-08-09)
PROC: B517YZZ Fluoroscopy of Left Subclavian Vein using Other Contrast (ICD-10-PCS; 2019-08-09)
PROC: 0JH606Z Insertion of Pacemaker, Dual Chamber into Chest Subcutaneous Tissue and Fascia, Open Approach (ICD-10-PCS; 2019-08-09)
PROC: 02HK3JZ Insertion of Pacemaker Lead into Right Ventricle, Percutaneous Approach (ICD-10-PCS; 2019-08-09)
DX: A41.9 Sepsis, unspecified organism (principal); I21.4 Non-ST elevation (NSTEMI) myocardial infarction; I26.99 Other pulmonary embolism without acute cor pulmonale; E43 Unspecified severe protein-calorie malnutrition; J18.9 Pneumonia, unspecified organism; G93.49 Other encephalopathy; J96.02 Acute respiratory failure with hypercapnia; R65.21 Severe sepsis with septic shock; J96.01 Acute respiratory failure with hypoxia; N17.9 Acute kidney failure, unspecified; I13.0 Hypertensive heart and chronic kidney disease with heart failure and stage 1 through stage 4 chronic kidney disease, or unspecified chronic kidney disease; I48.20 Chronic atrial fibrillation, unspecified; I47.1 Supraventricular tachycardia; E11.22 Type 2 diabetes mellitus with diabetic chronic kidney disease; D64.9 Anemia, unspecified; F20.9 Schizophrenia, unspecified; I49.5 Sick sinus syndrome; F03.90 Unspecified dementia, unspecified severity, without behavioral disturbance, psychotic disturbance, mood disturbance, and anxiety; E87.0 Hyperosmolality and hypernatremia; N18.1 Chronic kidney disease, stage 1; I50.9 Heart failure, unspecified; K21.0 Gastro-esophageal reflux disease with esophagitis; I27.21 Secondary pulmonary arterial hypertension; I45.2 Bifascicular block; J45.901 Unspecified asthma with (acute) exacerbation; K44.9 Diaphragmatic hernia without obstruction or gangrene; K29.70 Gastritis, unspecified, without bleeding; B96.20 Unspecified Escherichia coli [E. coli] as the cause of diseases classified elsewhere; N39.0 Urinary tract infection, site not specified; N28.1 Cyst of kidney, acquired; E86.1 Hypovolemia; J43.9 Emphysema, unspecified; D72.821 Monocytosis (symptomatic); I49.1 Atrial premature depolarization; F32.9 Major depressive disorder, single episode, unspecified; R13.10 Dysphagia, unspecified; E87.6 Hypokalemia; E87.8 Other disorders of electrolyte and fluid balance, not elsewhere classified; K82.8 Other specified diseases of gallbladder; Z68.1 Body mass index [BMI] 19.9 or less, adult; Z88.8 Allergy status to other drugs, medicaments and biological substances; Z79.84 Long term (current) use of oral hypoglycemic drugs; Z79.899 Other long term (current) drug therapy; Z79.82 Long term (current) use of aspirin; Z93.1 Gastrostomy status; Z86.73 Personal history of transient ischemic attack (TIA), and cerebral infarction without residual deficits; Z78.1 Physical restraint status; Z79.01 Long term (current) use of anticoagulants; Z03.818 Encounter for observation for suspected exposure to other biological agents ruled out
CPT/HCPCS: 33208; 36415; 36600; 71045; 71275; 74018; 75820; 76700; 80048; 80053; 80076; 80162; 81003; 82270; 82375; 82550; 82553; 82607; 82728; 82746; 82805; 82962; 83036; 83540; 83550; 83605; 83735; 84100; 84145; 84484; 85025; 85379; 87635; 93005; 93306; 93970; 94002; 94640; 99291; C1785; C1893; C1898; C9113; J0330; J0690; J0692; J1100; J1160; J1580; J1650; J1815; J1956; J2060; J2250; J2405; J2704; J2920; J3010; J3475; J3490; J7030; J7060; J7070; J7512; J7608; Q9967

== ENCOUNTER 2019-08-24 20:55 | Inpatient (IN) | payer MEDICARE, MEDICAID ==
[~2019-08-24] VITALS: Ht 157.5 cm; Wt 57.8 kg
[~2019-08-24 20:55] MED LIST changes: +AMIO100T4 PO; +APIX5TAB MT; -ASPI-1497 PO; +CARLA24 MT; -FERR220S6 MT; -FOLI-43 MT; -LOSA100T32 PO; -LOSA50TA3 GT; +PANT40TA4 MT
[2019-08-24] MEDS ORDERED: VANCOMYCIN 1 G PREMIX 200 ML IV ONE (21:15)
[2019-08-24] MEDS ORDERED: SODIUM CHLORIDE 0.9% 1000ML BAG (SEPSIS BOLUS) IV ONE (21:15)
[2019-08-24] MEDS ORDERED: ETOMIDATE 2MG/ML 10ML VIAL IV ONE (21:15)
[2019-08-24] MEDS ORDERED: SUCCINYLCHOLINE CHLORIDE 200MG/10ML IV ONE (21:15)
[2019-08-24] MEDS ORDERED: PIPERACILLIN/TAZ 3.375G PREMIX 50 ML IV ONE (21:15)
[2019-08-24] MEDS ORDERED: MIDAZOLAM HCL 50 MG in DEXTROSE 5% WATER 40 ML IV ONE (21:45)
[2019-08-24] MEDS ORDERED: MIDAZOLAM HCL 2 MG/2 ML VIAL IV ONE (21:45)
[2019-08-24] MEDS ORDERED: MIDAZOLAM HCL 50 MG in DEXTROSE 5% WATER 40 ML IV NR (21:48)
[2019-08-24 21:54] LABS: BASOPHILS % 0.2 % (0.0-2.0); EOSINOPHILS % 0.3 % (0.0-5.0); HEMATOCRIT. 41.3 % (42.0-52.0); HEMOGLOBIN. 12.8 g/dL (14.0-18.0); LYMPHOCYTES % 26.5 % (20.0-50.0); MEAN CORPUSCULAR VOLUME 93.2 fL (80.0-94.0); MEAN PLATELET VOLUME 9.7 fl (7.4-10.4); MONOCYTES % 4.3 % (2.0-8.0); NEUTROPHILS % 68.7 % (40.0-76.0); PLATELET 229 x1000/uL (130-400); RED BLOOD CELL COUNT 4.43 mill/uL (4.7-6.1); RED CELL DISTRIBUTION WIDTH 20.3 % (11.6-14.6)
[2019-08-24 21:57] LABS: CHLORIDE 111 mEq/L (98-107)
[2019-08-24 21:58] LABS: INR 1.3; PROTHROMBIN TIME 14.2 sec (9.6-11.0)
[2019-08-24] MEDS ORDERED: NOREPINEPHRINE 4MG/250ML PMX 250 ML IV ONE (22:30)
[2019-08-25] MEDS ORDERED: NOREPINEPHRINE 4MG/250ML PMX 250 ML IV ONE (02:10)
[2019-08-25] MEDS ORDERED: NOREPINEPHRINE 4MG in DEXT 5% WATER 250ML IV PRN (02:50)
[2019-08-25 03:18] LABS: CLARITY URINE CLEAR (CLEAR); COLOR URINE YELLOW (YELLOW); KETONES URINE NEGATIVE (NEGATIVE); LEUKOCYTE ESTERASE URINE 1+ (NEGATIVE); NITRITE URINE NEGATIVE (NEGATIVE); OCCULT BLOOD URINE 3+ (NEGATIVE); PH URINE 5.5 (4.5-8.0); PROTEIN URINE 1+ (NEGATIVE); SPECIFIC GRAVITY URINE 1.016 (1.005-1.030)
[2019-08-25] MEDS: DOPAMINE 800MG PREMIX 500 ML IV PRN (03:39)
[2019-08-25] MEDS: SODIUM CHLORIDE 0.45% 1,000 ML IV SCH ×2 (07:30→17:30)
[2019-08-25 07:58] LABS: CREATINE KINASE 213 IU/L (39-308)
[2019-08-25 09:47] LABS: BG BASE EXCESS -2.5 mmol/L (-2.0-2.0); BG CARBOXYHEMOGLOBIN 0.3 % (0.5-1.5); BG DEOXYHEMOGLOBIN 2.4 % (0.0-5.0); BG FRACTION INSPIRED OXYGEN 100; BG HCO3 ACT 21.6 mmol/L (22.0-26.0); BG OXYGEN SATURATION 97.6 % (92.0-98.5); BG OXYHEMOGLOBIN 97.3 % (94.0-97.0); BG PCO2 34.5 mmHg (35.0-45.0); BG PH 7.414 (7.350-7.450); BG PO2 98.4 mmHg (75.0-100.0); BG SAMPLE SITE RIGHT BRACHIAL; BG TIDAL VOLUME(mL) 500 mL; BG TOTAL HEMOGLOBIN 10.8 g/dL (12.0-18.0); BG VENT MODE VENT - A/C; BG VENT RATE 12 set
[2019-08-25] MEDS ORDERED: PHENYLEPHRINE 20 MG in DEXT 5% WATER 248 ML IV PRN (10:00)
[2019-08-25] MEDS ORDERED: CLONIDINE 0.1MG TABLET PO PRN (10:15)
[2019-08-25] MEDS ORDERED: AZITHROMYCIN 500 MG in DEXT 5% WATER 250 ML IV SCH (10:15)
[2019-08-25] MEDS ORDERED: ONDANSETRON HCL 4MG/2ML INJ IV PRN (10:15)
[2019-08-25] MEDS ORDERED: ACETAMINOPHEN 325MG TABLET PO PRN (10:15)
[2019-08-25] MEDS ORDERED: ENOXAPARIN 40MG/0.4ML SYR SUBCUT SCH (10:15)
[2019-08-25] MEDS: NOREPINEPHRINE 4MG/250ML PMX IV PRN ×2 (11:56→15:49)
[2019-08-25] MEDS ORDERED: NOREPINEPHRINE 32 MG in DEXT 5% WATER 468 ML IV PRN (15:00)
[2019-08-25] MEDS ORDERED: MIDAZOLAM HCL 100 MG in DEXT 5% WATER 80 ML IV PRN (15:45)
[2019-08-25] MEDS ORDERED: FENTANYL CITRATE/PF 1,000 MCG in SODIUM CHLORIDE 0.9% 80 ML IV PRN ×4 (15:45)
[2019-08-25] MEDS: MIDAZOLAM HCL 100 MG in DEXT 5% WATER 80 ML IV PRN (16:43)
[2019-08-25 21:22] LABS: CREATINE KINASE MB FRACTION 5.9 ng/mL (0.5-3.6)
[2019-08-26 00:13] LABS: CREATINE KINASE MB FRACTION 5.1 ng/mL (0.5-3.6)
[2019-08-26] MEDS ORDERED: PIPERACILLIN/TAZOBACTAM 2.25 G in DEXTROSE 5% WATER 50 ML IV SCH (01:00)
[2019-08-26 05:31] LABS: CHLORIDE 100 mEq/L (98-107); HEMATOCRIT. 34.5 % (42.0-52.0); MEAN CORPUSCULAR HEMOGLOBIN 28.9 pg (28.0-32.0); MEAN CORPUSCULAR VOLUME 90.9 fL (80.0-94.0); MEAN PLATELET VOLUME 10.1 fl (7.4-10.4); PLATELET 164 x1000/uL (130-400); RED BLOOD CELL COUNT 3.79 mill/uL (4.7-6.1); RED CELL DISTRIBUTION WIDTH 19.9 % (11.6-14.6)
[2019-08-26 05:41] LABS: LDL CHOLESTEROL 42 mg/dL (5-100)
[2019-08-26 05:43] LABS: HDL CHOLESTEROL 29 mg/dL (40-59)
[2019-08-26] MEDS ORDERED: DOPAMINE HCL 800 MG in DEXT 5% WATER 490 ML IV PRN (08:00)
[2019-08-26 08:39] LABS: NUCLEATED RED BLOOD CELLS 4 /100 WBC; PLATELET ESTIMATE NORMAL
[2019-08-26] MEDS: DOPAMINE 800MG PREMIX 500 ML IV PRN (08:58)
[2019-08-26] MEDS: NOREPINEPHRINE 4MG/250ML PMX IV PRN ×3 (09:00→16:22)
[2019-08-26] MEDS ORDERED: PIPERACILLIN/TAZOBACTAM 2.25 G in DEXTROSE 5% WATER 50 ML IV ONE (09:45)
[2019-08-26] MEDS ORDERED: AZITHROMYCIN 500 MG in DEXT 5% WATER 250 ML IV ONE (09:45)
[2019-08-26 09:50] LABS: BG BASE EXCESS -5.5 mmol/L (-2.0-2.0); BG CARBOXYHEMOGLOBIN 0.3 % (0.5-1.5); BG DEOXYHEMOGLOBIN 1.1 % (0.0-5.0); BG FRACTION INSPIRED OXYGEN 100; BG HCO3 ACT 18.1 mmol/L (22.0-26.0); BG METHEMOGLOBIN 0.3 % (0.0-1.5); BG OXYGEN SATURATION 98.9 % (92.0-98.5); BG OXYHEMOGLOBIN 98.3 % (94.0-97.0); BG PCO2 29.1 mmHg (35.0-45.0); BG PH 7.412 (7.350-7.450); BG PO2 145.4 mmHg (75.0-100.0); BG SAMPLE SITE RIGHT BRACHIAL; BG TIDAL VOLUME(mL) 500 mL; BG TOTAL HEMOGLOBIN 10.4 g/dL (12.0-18.0); BG VENT MODE VENT - A/C; BG VENT RATE 12 set
[2019-08-26] MEDS ORDERED: ENOXAPARIN 60MG/0.6ML SYR SUBCUT SCH (10:00)
[2019-08-26] MEDS: DOXYCYCLINE HYCLATE 100MG CAPSULE PO SCH ×2 (11:15→15:43)
[2019-08-26] MEDS ORDERED: VANCOMYCIN 1 G PREMIX 200 ML IV NR (12:00)
[2019-08-26] MEDS ORDERED: IPRATROPIUM/ALBUTEROL 0.5-3(2.5)MG/3ML NEB HHN PRN (13:15)
[2019-08-26] MEDS ORDERED: DOXYCYCLINE 100 MG in DEXT 5% WATER 100 ML IV SCH (15:00)
[2019-08-26] MEDS: PIPERACILLIN/TAZOBACTAM 2.25 G in DEXTROSE 5% WATER 50 ML IV SCH (21:15)
[2019-08-26] MEDS ORDERED: DILTIAZEM HCL 125MG in DEXTROSE 5% WATER 125ML IV PRN (21:15)
[2019-08-27] VITALS (30 sets, daily range): BP systolic 54–126; BP diastolic 35–73
[2019-08-27] MEDS ORDERED: NOREPINEPHRINE 32 MG in DEXT 5% WATER 468 ML IV PRN (02:15)
[2019-08-27] MEDS: PIPERACILLIN/TAZOBACTAM 2.25 G in DEXTROSE 5% WATER 50 ML IV SCH (06:00)
[2019-08-27 06:43] LABS: HEMATOCRIT. 34.8 % (42.0-52.0); HEMOGLOBIN. 11.2 g/dL (14.0-18.0); MEAN CORPUSCULAR HEMOGLOBIN 29.1 pg (28.0-32.0); MEAN CORPUSCULAR VOLUME 90.6 fL (80.0-94.0); MEAN PLATELET VOLUME 10.7 fl (7.4-10.4); PLATELET 144 x1000/uL (130-400); RED BLOOD CELL COUNT 3.84 mill/uL (4.7-6.1); RED CELL DISTRIBUTION WIDTH 19.9 % (11.6-14.6)
[2019-08-27 07:13] LABS: NUCLEATED RED BLOOD CELLS 5 /100 WBC; PLATELET ESTIMATE NORMAL
[2019-08-27 09:39] LABS: BG BASE EXCESS -5.1 mmol/L (-2.0-2.0); BG CARBOXYHEMOGLOBIN 0.5 % (0.5-1.5); BG DEOXYHEMOGLOBIN 11.9 % (0.0-5.0); BG FRACTION INSPIRED OXYGEN 80; BG HCO3 ACT 19.8 mmol/L (22.0-26.0); BG METHEMOGLOBIN 0.3 % (0.0-1.5); BG OXYHEMOGLOBIN 87.3 % (94.0-97.0); BG PH 7.358 (7.350-7.450); BG PO2 56.5 mmHg (75.0-100.0); BG SAMPLE SITE RIGHT BRACHIAL; BG TIDAL VOLUME(mL) 500 mL; BG TOTAL HEMOGLOBIN 11.2 g/dL (12.0-18.0); BG VENT MODE VENT - A/C; BG VENT RATE 12 set
[2019-08-27] MEDS ORDERED: AZITHROMYCIN 500 MG in DEXT 5% WATER 250 ML IV SCH (11:00)
[2019-08-27] MEDS: DOXYCYCLINE HYCLATE 100MG CAPSULE PO SCH ×2 (11:00→22:23)
[2019-08-27] MEDS: SODIUM CHLORIDE 0.9% 1,000 ML IV SCH ×2 (12:36→22:23)
[2019-08-27] MEDS: IPRATROPIUM/ALBUTEROL 0.5-3(2.5)MG/3ML NEB HHN SCH ×2 (17:25→19:58)
[2019-08-27] MEDS: MIDAZOLAM HCL 100 MG in DEXT 5% WATER 80 ML IV PRN (18:42)
[2019-08-27] MEDS: MIDODRINE HCL 5MG TABLET PO SCH (22:23)
[2019-08-28] VITALS (76 sets, daily range): BP systolic 42–131; BP diastolic 29–75
[2019-08-28] MEDS ORDERED: PHENYLEPHRINE 20 MG in DEXT 5% WATER 248 ML IV PRN (04:30)
[2019-08-28] MEDS ORDERED: VASOPRESSIN 10 UNIT in SODIUM CHLORIDE 0.9% 99.5 ML IV PRN (05:15)
[2019-08-28 05:25] LABS: BG BASE EXCESS -12.4 mmol/L (-2.0-2.0); BG CARBOXYHEMOGLOBIN 0.3 % (0.5-1.5); BG DEOXYHEMOGLOBIN 2.9 % (0.0-5.0); BG FRACTION INSPIRED OXYGEN 70; BG HCO3 ACT 12.5 mmol/L (22.0-26.0); BG METHEMOGLOBIN 0.1 % (0.0-1.5); BG OXYGEN SATURATION 97.1 % (92.0-98.5); BG OXYHEMOGLOBIN 96.7 % (94.0-97.0); BG PCO2 26.1 mmHg (35.0-45.0); BG PH 7.299 (7.350-7.450); BG PIP 36 cmH2O; BG PO2 105.9 mmHg (75.0-100.0); BG SAMPLE SITE RIGHT BRACHIAL; BG TIDAL VOLUME(mL) 500 mL; BG TOTAL HEMOGLOBIN 10.5 g/dL (12.0-18.0); BG VENT MODE VENT - A/C; BG VENT RATE 12 set
[2019-08-28] MEDS ORDERED: PHENYLEPHRINE 80 MG in DEXT 5% WATER 492 ML IV PRN (05:43)
[2019-08-28 06:00] LABS: HEMOGLOBIN. 7.8 g/dL (14.0-18.0); MEAN CORPUSCULAR HEMOGLOBIN 28.9 pg (28.0-32.0); MEAN CORPUSCULAR VOLUME 92.7 fL (80.0-94.0); MEAN PLATELET VOLUME 10.4 fl (7.4-10.4); PLATELET 113 x1000/uL (130-400); RED CELL DISTRIBUTION WIDTH 19.7 % (11.6-14.6)
[2019-08-28] MEDS ORDERED: CALCIUM GLUCONATE 1,000 MG in DEXT 5% WATER 90 ML IV STA (06:47)
[2019-08-28] MEDS ORDERED: SODIUM BICARBONATE 8.4% 1 MEQ/ML 50ML SYR IV STA (06:47)
[2019-08-28] MEDS ORDERED: DEXTROSE 50% WATER 50ML SYRINGE IV STA (06:47)
[2019-08-28] MEDS ORDERED: INSULIN REGULAR (HUMULIN R) 300UNITS/3ML IV STA (06:47)
[2019-08-28] MEDS ORDERED: SODIUM POLYSTYRENE SULFONATE 15 G/60 ML BOT PO ONE (07:00)
[2019-08-28] MEDS ORDERED: SODIUM BICARBONATE 8.4% 1 MEQ/ML 50ML SYR IV ONE (07:00)
[2019-08-28] MEDS ORDERED: DEXT 10% WATER 1,000 ML IV SCH ×2 (07:00→08:00)
[2019-08-28] MEDS ORDERED: SODIUM BICARBONATE 100 MEQ in SODIUM CHLORIDE 0.45% 1,000 ML IV SCH (07:00)
[2019-08-28 08:40] LABS: NUCLEATED RED BLOOD CELLS 19 /100 WBC; PLATELET ESTIMATE DECREASED
[2019-08-28] MEDS: IPRATROPIUM/ALBUTEROL 0.5-3(2.5)MG/3ML NEB HHN SCH (08:59)
[2019-08-28] MEDS: MIDODRINE HCL 5MG TABLET PO SCH (09:24)
[2019-08-28 09:59] LABS: BG BASE EXCESS -16.8 mmol/L (-2.0-2.0); BG CARBOXYHEMOGLOBIN 0.6 % (0.5-1.5); BG DEOXYHEMOGLOBIN 1.7 % (0.0-5.0); BG FRACTION INSPIRED OXYGEN 100; BG HCO3 ACT 12.6 mmol/L (22.0-26.0); BG METHEMOGLOBIN 0.2 % (0.0-1.5); BG OXYGEN SATURATION 98.3 % (92.0-98.5); BG OXYHEMOGLOBIN 97.5 % (94.0-97.0); BG PCO2 49.1 mmHg (35.0-45.0); BG PH 7.027 (7.350-7.450); BG PO2 173.6 mmHg (75.0-100.0); BG SAMPLE SITE LEFT FEMORAL; BG TIDAL VOLUME(mL) 500 mL; BG TOTAL HEMOGLOBIN 6.3 g/dL (12.0-18.0); BG VENT MODE VENT - A/C; BG VENT RATE 12 set
== END 2019-08-28 10:16 | disposition expired | DRG 720 ==
LOC: ER 20:55 → CVICU 22:55 → EDBEDREQ 23:01 → EDBEDREQTM 23:01 → EDBEDREQ 08-25 19:37 → EDBEDREQTM 08-27 07:34 → EDBEDREQ 08-27 07:35 → ENRESERV 08-27 16:15
PROVIDERS: ADMIT Internal Medicine; ATTEND Internal Medicine
PROC: 5A1945Z Respiratory Ventilation, 24-96 Consecutive Hours (ICD-10-PCS; 2019-08-24)
PROC: 0BH17EZ Insertion of Endotracheal Airway into Trachea, Via Natural or Artificial Opening (ICD-10-PCS; 2019-08-24)
PROC: 02HV33Z Insertion of Infusion Device into Superior Vena Cava, Percutaneous Approach (ICD-10-PCS; 2019-08-24)
PROC: B548ZZA Ultrasonography of Superior Vena Cava, Guidance (ICD-10-PCS; 2019-08-24)
PROC: 4B02XSZ Measurement of Cardiac Pacemaker, External Approach (ICD-10-PCS; principal; 2019-08-26)
PROC: 5A12012 Performance of Cardiac Output, Single, Manual (ICD-10-PCS; 2019-08-28)
PROC: 5A12012 Performance of Cardiac Output, Single, Manual (ICD-10-PCS; 2019-08-28)
DX: A41.9 Sepsis, unspecified organism (principal); J69.0 Pneumonitis due to inhalation of food and vomit; J96.00 Acute respiratory failure, unspecified whether with hypoxia or hypercapnia; N17.0 Acute kidney failure with tubular necrosis; E43 Unspecified severe protein-calorie malnutrition; R65.21 Severe sepsis with septic shock; E87.0 Hyperosmolality and hypernatremia; I48.0 Paroxysmal atrial fibrillation; E11.9 Type 2 diabetes mellitus without complications; D63.8 Anemia in other chronic diseases classified elsewhere; I46.9 Cardiac arrest, cause unspecified; E87.2 Acidosis; I27.20 Pulmonary hypertension, unspecified; I49.5 Sick sinus syndrome; E86.9 Volume depletion, unspecified; E78.00 Pure hypercholesterolemia, unspecified; E78.5 Hyperlipidemia, unspecified; F99 Mental disorder, not otherwise specified; J45.909 Unspecified asthma, uncomplicated; N39.0 Urinary tract infection, site not specified; R74.0 Nonspecific elevation of levels of transaminase and lactic acid dehydrogenase [LDH]; E87.5 Hyperkalemia; F03.90 Unspecified dementia, unspecified severity, without behavioral disturbance, psychotic disturbance, mood disturbance, and anxiety; F20.9 Schizophrenia, unspecified; I10 Essential (primary) hypertension; I25.10 Atherosclerotic heart disease of native coronary artery without angina pectoris; I69.320 Aphasia following cerebral infarction; I69.391 Dysphagia following cerebral infarction; Z79.01 Long term (current) use of anticoagulants; Z79.84 Long term (current) use of oral hypoglycemic drugs; Z79.899 Other long term (current) drug therapy; Z86.711 Personal history of pulmonary embolism; Z95.0 Presence of cardiac pacemaker; Z88.8 Allergy status to other drugs, medicaments and biological substances; Z93.1 Gastrostomy status; Z03.818 Encounter for observation for suspected exposure to other biological agents ruled out
CPT/HCPCS: 36415; 36600; 71045; 80048; 80053; 82375; 82805; 82962; 83605; 84145; 84484; 85025; 87070; 87106; 93005; 94002; 94003; 94640; 99291; J0330; J0456; J0610; J1650; J1815; J2250; J2370; J2543; J3370; J3490; J7030; J7060; U0003; C9803-CS